=== PATIENT | male | born 1945 | race African-American/Black ===

== ENCOUNTER 2019-07-24 01:05 | Emergency (ER) | payer MEDICARE ==
[2019-07-24] MEDS ORDERED: FAMOTIDINE 20 MG TABLET PO ONE (01:36)
[2019-07-24] MEDS ORDERED: ASPIRIN 81 MG TABLET, CHEWABLE PO ONE (01:36)
--- NOTE | 2019-07-24 01:39 | ER Document Report ---
ED General - General Chief Complaint: Chest Pain Stated Complaint: CHEST PAIN Time Seen by Provider: 07/24/19 01:30 Primary Care Provider: JAMES OAKES MD [ACTIVE STAFF] - Follow up in 3-5 days ASHLEY YEE MD [ACTIVE STAFF] - Follow up in 3-5 days Notes: Patient is a 74-year-old male that comes emergency department for chief complaint of pain throughout the middle of his chest and abdomen all the way down to his lower abdomen that started about 12:30 AM tonight just prior to arrival. He denies nausea or vomiting, fever chills, cough, back pain. He denies injury. He states he has been drinking alcohol but states he only drank 1 beer this afternoon. He smokes, he denies any daily medications, he states his only medical history is he had cervical surgery at one time and he also used to be on Coumadin for a blood clot in his legs a long time ago. He lives at home with his niece who is at bedside. She is unaware of any other medical history as well. - Related Data Allergies/Adverse Reactions: No Known Allergies Allergy (Unverified 07/24/19 01:38) Past Medical History - General Information source: Patient - Social History Smoking Status: Current Every Day Smoker Smoking Education Provided: Yes - <3 min Frequency of alcohol use: Heavy Drug Abuse: None Lives with: Family Family History: Reviewed & Not Pertinent - Past Medical History Cardiac Medical History: Reports: Hx DVT Past Surgical History: Reports: Hx Orthopedic Surgery - Cervical spine Review of Systems - Review of Systems Constitutional: No symptoms reported EENT: No symptoms reported Cardiovascular: See HPI Respiratory: See HPI Gastrointestinal: See HPI Genitourinary: No symptoms reported Male Genitourinary: No symptoms reported Musculoskeletal: No symptoms reported Skin: No symptoms reported Hematologic/Lymphatic: No symptoms reported Neurological/Psychological: No symptoms reported Physical Exam - Vital signs Vitals: Temp Pulse Resp BP Pulse Ox 97.7 F 70 20 112/74 94 07/24/19 01:22 07/24/19 01:22 07/24/19 01:22 07/24/19 01:22 07/24/19 01:22 - Notes Notes: GENERAL: Alert, interacts well. No acute distress. HEAD: Normocephalic, atraumatic. EYES: Pupils equal, round, and reactive to light. Extraocular movements intact. ENT: Oral mucosa moist, tongue midline. Oropharynx unremarkable. Airway patent. NECK: Full range of motion. Supple. Trachea midline. LUNGS: Clear to auscultation bilaterally, no wheezes, rales, or rhonchi. No respiratory distress. HEART: Regular rate and rhythm. No murmur ABDOMEN: Tenderness in the left upper quadrant and epigastric area, remaining abdomen is soft and benign. GENITOURINARY: Deferred EXTREMITIES: Moves all 4 extremities spontaneously. No edema, normal radial and dorsalis pedis pulses bilaterally. No cyanosis. BACK: No CVA tenderness. No cervical, thoracic, lumbar midline tenderness. No saddle anesthesia, normal distal neurovascular exam. Moves all extremities in full range of motion. NEUROLOGICAL: Alert and oriented x3. Normal speech. Cranial nerves II through XII grossly intact. PSYCH: Normal affect, normal mood. SKIN: Warm, dry, normal turgor. No rashes or lesions noted. Course - Re-evaluation Re-evalutation: On my exam patient has some epigastric tenderness mainly in the epigastric area and left upper quadrant, he is also belching frequently. Pain does radiate from the abdomen up into the chest. Shows leukopenia, nonspecific, chemistry shows creatinine of 1.3 but is otherwise unremarkable, lipase is negative. Troponin is negative. Urine is actually positive with positive nitrites and white blood cells. Patient has no CVA tenderness, lower abdominal pain, dysuria. I did discuss this with patient however and he was given Rocephin and culture was placed. EKG nonspecific. Chest x-ray unremarkable. Discussed with patient at length. He is not tachycardic, he is not hypoxic, however he states when the pain is present he does feel somewhat short of breath. He does smoke. He does have a history of DVT and he is not on blood thinners. Decision was made after discussion to perform d-dimer and if this is positive to perform CTA to rule out clot or any other concerning intrathoracic etiology. D-dimer slightly elevated, CTA was performed, shows no clot or concerning acute findings, because shows renal cyst which I discussed with patient and family. Second troponin negative. Based on his clinical picture I have a very low suspicion of acute intrathoracic etiology. Patient had also been given a GI cocktail, after this his symptoms did resolve. I discussed options with patient and family including discharge versus admission. After discussion decision was made to treat him for suspected upper gastrointestinal inflammation, treat for the UTI, and have him follow close with primary care. I discussed the causes of gastritis. Patient states that he drinks alcohol frequently but he does not have withdrawal. He states understanding that this is a cause and he states he will cut back. He lives with his family and he is going home with him, he states he will follow-up with primary care and he will come back if he worsens in any way. Patient stable at time of discharge. - Vital Signs Vital signs: Temp Pulse Resp BP Pulse Ox 98.3 F 63 16 153/86 H 98 07/24/19 06:30 07/24/19 06:30 07/24/19 06:30 07/24/19 06:30 07/24/19 06:30 - Laboratory Result Diagrams: 07/24/19 01:35 07/24/19 01:35 Laboratory results interpreted by me: 07/24/19 07/24/19 07/24/19 01:35 01:35 01:35 WBC 2.7 L RBC 3.60 L Hgb 11.1 L Hct 33.1 L Absolute Neuts (auto) 1.3 L D-Dimer 0.61 H Creatinine 1.30 H Est GFR (MDRD) Non-Af 54 L Urine Blood Urine Nitrite Ur Leukocyte Esterase 07/24/19 02:04 WBC RBC Hgb Hct Absolute Neuts (auto) D-Dimer Creatinine Est GFR (MDRD) Non-Af Urine Blood SMALL H Urine Nitrite POSITIVE H Ur Leukocyte Esterase LARGE H - Diagnostic Test Radiology results interpreted by me: EKG shows sinus rhythm at a rate of 69, QTC of 429, normal axis. Anterior leads with what appears to be mild J-point elevation, no comparison. No T wave inversions or overt ST segment changes in consecutive leads. Discharge - Discharge Clinical Impression: Upper abdominal pain, Belching Chest pain Qualifiers: Chest pain type: unspecified Qualified Code(s): R07.9 - Chest pain, unspecified Urinary tract infection Qualifiers: Urinary tract infection type: site unspecified Hematuria presence: without hematuria Qualified Code(s): N39.0 - Urinary tract infection, site not specified Condition: Stable Disposition: HOME, SELF-CARE Additional Instructions: Your scan is reassuring, your tests are reassuring except for urinary tract infection. Based on your symptoms and evaluation I suspect that you have inflammation of your upper gastrointestinal tract. Take the medications as prescribed including the antibiotics. Follow-up closely with the primary care referral for additional testing and management. Avoid alcohol, NSAIDs, caffeine, spicy food as you are recovering. Start with bland diet and progress. Come back if you are worse including severe pain, vomiting, vomiting blood, black stools, fever, or any other concerning or worsening symptoms. Prescriptions: Sucralfate [Carafate 1 gm Tablet] 1 gm PO QID #20 tablet Cephalexin Monohydrate [Keflex 500 mg Capsule] 500 mg PO BID 7 Days #14 capsule Famotidine [Pepcid 20 mg Tablet] 20 mg PO BID #20 tablet Referrals: JAMES OAKES MD [ACTIVE STAFF] - Follow up in 3-5 days ASHLEY YEE MD [ACTIVE STAFF] - Follow up in 3-5 days
[2019-07-24 01:56] LABS: ABSOLUTE LYMPHOCYTES (AUTO) 1.1 10^3/uL (0.5-4.7); ABSOLUTE MONOCYTES (AUTO) 0.3 10^3/uL (0.1-1.4); ABSOLUTE NEUT (AUTO) 1.3 10^3/uL (1.7-8.2); BASOPHILS % (AUTO) 0.8 % (0-2); EOSINOPHILS % (AUTO) 1.5 % (0-6); HEMATOCRIT 33.1 % (37.9-51.0); HEMOGLOBIN 11.1 g/dL (13.5-17.0); LYMPHOCYTES % (AUTO) 40.9 % (13-45); MEAN CORPUSCULAR HEMOGLOBIN 30.8 pg (27.0-33.4); MEAN CORPUSCULAR HGB CONC 33.5 g/dL (32.0-36.0); MEAN CORPUSCULAR VOLUME 92 fl (80-97); MONOCYTES % (AUTO) 9.9 % (3-13); PLATELET COUNT 262 10^3/uL (150-450); SEGMENTED NEUTROPHILS % (AUTO) 46.9 % (42-78); TOTAL CELLS COUNTED % (AUTO) 100 %; WHITE BLOOD COUNT 2.7 10^3/uL (4.0-10.5)
[2019-07-24 02:20] LABS: APPEARANCE,URINE CLEAR; BILIRUBIN,URINE NEGATIVE (NEGATIVE); COLOR,URINE YELLOW; GLUCOSE, URINE NEGATIVE (NEGATIVE); KETONES,URINE NEGATIVE (NEGATIVE); LEUKOCYTE ESTERASE,URINE LARGE (NEGATIVE); NITRITE,URINE POSITIVE (NEGATIVE); PROTEIN,URINE NEGATIVE (NEGATIVE); URINE SPECIFIC GRAVITY 1.009; UROBILINOGEN,URINE NEGATIVE mg/dL (<2.0)
[2019-07-24 02:22] LABS: ALBUMIN 3.9 g/dL (3.5-5.0); ALCOHOL 93 mg/dL (NONE DETECTED); ALKALINE PHOSPHATASE 97 U/L (38-126); ANION GAP 11 (5-19); ASPARTATE AMINO TRANSFERASE 27 U/L (17-59); BILIRUBIN,DIRECT 0.2 mg/dL (0.0-0.4); BILIRUBIN,TOTAL 0.3 mg/dL (0.2-1.3); BLOOD UREA NITROGEN 13 mg/dL (7-20); CALCIUM 9.3 mg/dL (8.4-10.2); CARBON DIOXIDE 25 mmol/L (22-30); CHLORIDE 102 mmol/L (98-107); GLUCOSE 102 mg/dL (75-110); POTASSIUM 4.1 mmol/L (3.6-5.0); TOTAL PROTEIN 7.6 g/dL (6.3-8.2)
--- NOTE | 2019-07-24 02:29 | RADIOLOGY REPORT (SQ) ---
XR CHEST 1 VIEW EXAM DATE: 07/24/2019 1:36 AM TIME PIECE REPAIRER HISTORY: Chest pain. COMPARISON: None. FINDINGS: The cardiomediastinal silhouette is within normal limits. No focal consolidation, pleural effusion, or pneumothorax. No acute bony findings are seen. IMPRESSION: No evidence of acute cardiopulmonary disease.
[2019-07-24] MEDS ORDERED: ONDANSETRON HCL INJ/PF 4 MG/2 ML SDV IV ONE (02:31)
[2019-07-24] MEDS ORDERED: MORPHINE SULFATE 10 MG/ML INJ IV ONE (02:31)
[2019-07-24] MEDS ORDERED: CEFTRIAXONE 1 GM/D5W RTU 1 GM/50 ML RTUPB IV ONE (03:16)
[2019-07-24] MEDS ORDERED: MAG HYDROX/AL HYDROX/SIMETH SUSP 30 ML UDCUP PO ONE (03:16)
[2019-07-24] MEDS ORDERED: METOCLOPRAMIDE HCL ORAL SOLN 10 MG/10 ML UDCUP PO ONE (03:16)
[2019-07-24] MEDS ORDERED: LIDOCAINE 2% VISCOUS SOLN 20 ML UDCUP PO ONE (03:16)
--- NOTE | 2019-07-24 05:00 | RADIOLOGY REPORT (SQ) ---
EXAM DESCRIPTION: CT CHEST ANGIOGRAPHY WITHOUT THEN WITH IV CONTRAST COMPLETED DATE/TME: 07/24/2019 03:45 CLINICAL HISTORY: 74 years, Male, chest pain, hx PE/DVT COMPARISON: None TECHNIQUE: Axial CT images of the chest were obtained after the administration of IV contrast. MPR and MIP reconstructions were performed. DLP 450 Images stored on PACS. All CT scanners at this facility use dose modulation, iterative reconstruction, and/or weight based dosing when appropriate to reduce radiation dose to as low as reasonably achievable (ALARA). [facility]: Dose Right [facility]: CareDose [facility]: Dose Right [facility]: Teradose 4D [facility]: Smart Tales2Go LIMITATIONS: None. FINDINGS: No acute pulmonary embolism is detected to the segmental branches. Visualized portions of the thyroid gland are normal. The central airways are patent. The heart is normal in size. There is no pericardial effusion. There are mild atherosclerotic calcifications of the thoracic aorta. No evidence of aneurysm or dissection. There is no mediastinal or hilar lymphadenopathy. There is no pericardial effusion. There is a 1.6 cm rounded opacity along the left lower lobe adjacent to pleural calcification, likely representing rounded atelectasis. The lungs are otherwise clear. There is no pneumothorax or pleural effusion. There are no lytic or blastic bone lesions. There is a 1.3 cm right renal cyst. IMPRESSION: No CT evidence of acute pulmonary embolism. TECHNICAL DOCUMENTATION: Quality ID # [id number]: Final reports with documentation of one or more dose reduction techniques (e.g., Automated exposure control, adjustment of the mA and/or kV according to patient size, use of iterative reconstruction technique) copyright 2011 [employer]- All Rights Reserved
[2019-07-24 06:30] VITALS: BP 153/86
--- NOTE | 2019-07-24 08:02 | EKG REPORT ---
SEVERITY:- ABNORMAL ECG - SINUS RHYTHM MULTIPLE ATRIAL PREMATURE COMPLEXES BORDERLINE ST ELEVATION, ANTERIOR LEADS EARLY PRECORDIAL TRNASITION, CONSIDER OLD TRUE POST MT. : Confirmed by: Shiva Mendoza MD 24-Jul-2019 08:01:53
== END 2019-07-24 07:55 | disposition home or self-care (01) ==
LOC: ER 01:05
DX: R07.9 Chest pain, unspecified (principal); N39.0 Urinary tract infection, site not specified; R10.816 Epigastric abdominal tenderness; R10.812 Left upper quadrant abdominal tenderness; R14.2 Eructation; R10.10 Upper abdominal pain, unspecified; Q61.01 Congenital single renal cyst; D72.819 Decreased white blood cell count, unspecified; R06.02 Shortness of breath; F17.200 Nicotine dependence, unspecified, uncomplicated; Z86.718 Personal history of other venous thrombosis and embolism; R79.89 Other specified abnormal findings of blood chemistry
CPT/HCPCS: 93005; 99406; 99285; 96374; 96375; 36415; 87086; 80307; 83690; 85025; 87088; 80053; 81001; 84484; 85379; 71045; 71275; 93010; A9270 ×4; J3490; J2270; J2405; J0696; 87186

== ENCOUNTER 2019-07-28 04:14 | Emergency (ER) | payer MEDICARE ==
[2019-07-28 04:29] VITALS: BP 137/72
[2019-07-28 06:45] LABS: APPEARANCE,URINE CLEAR; BILIRUBIN,URINE NEGATIVE (NEGATIVE); COLOR,URINE YELLOW; GLUCOSE, URINE NEGATIVE (NEGATIVE); KETONES,URINE NEGATIVE (NEGATIVE); PROTEIN,URINE NEGATIVE (NEGATIVE); URINE SPECIFIC GRAVITY 1.011; UROBILINOGEN,URINE NEGATIVE mg/dL (<2.0)
[2019-07-28 06:57] LABS: ALBUMIN 3.9 g/dL (3.5-5.0); ALKALINE PHOSPHATASE 84 U/L (38-126); ANION GAP 9 (5-19); ASPARTATE AMINO TRANSFERASE 26 U/L (17-59); BILIRUBIN,DIRECT 0.2 mg/dL (0.0-0.4); BILIRUBIN,TOTAL 0.3 mg/dL (0.2-1.3); BLOOD UREA NITROGEN 13 mg/dL (7-20); CALCIUM 9.2 mg/dL (8.4-10.2); CARBON DIOXIDE 30 mmol/L (22-30); CHLORIDE 100 mmol/L (98-107); GLUCOSE 88 mg/dL (75-110); POTASSIUM 4.5 mmol/L (3.6-5.0); TOTAL PROTEIN 7.4 g/dL (6.3-8.2)
[2019-07-28 07:40] LABS: ABSOLUTE LYMPHOCYTES (AUTO) 1.4 10^3/uL (0.5-4.7); ABSOLUTE MONOCYTES (AUTO) 0.3 10^3/uL (0.1-1.4); ABSOLUTE NEUT (AUTO) 1.3 10^3/uL (1.7-8.2); BASOPHILS % (AUTO) 0.9 % (0-2); EOSINOPHILS % (AUTO) 1.2 % (0-6); HEMOGLOBIN 12.6 g/dL (13.5-17.0); LYMPHOCYTES % (AUTO) 44.4 % (13-45); MEAN CORPUSCULAR HEMOGLOBIN 30.7 pg (27.0-33.4); MEAN CORPUSCULAR HGB CONC 33.3 g/dL (32.0-36.0); MEAN CORPUSCULAR VOLUME 92 fl (80-97); MONOCYTES % (AUTO) 9.6 % (3-13); PLATELET COUNT 251 10^3/uL (150-450); RED BLOOD COUNT 4.11 10^6/uL (4.35-5.55); RED CELL DISTRIBUTION WIDTH 13.1 % (11.5-14.0); SEGMENTED NEUTROPHILS % (AUTO) 43.9 % (42-78); TOTAL CELLS COUNTED % (AUTO) 100 %; WHITE BLOOD COUNT 3.1 10^3/uL (4.0-10.5)
--- NOTE | 2019-07-28 07:55 | RADIOLOGY REPORT (SQ) ---
EXAM DESCRIPTION: X-ray abdomen two views CLINICAL DATA: 74-year-old male with abdominal pain and possible constipation. TECHNICAL DATA: Two x-ray views of the abdomen were performed on 07/28/2019 at 7:27 AM. Comparison: None. FINDINGS: The bowel gas pattern is nonspecific and nonobstructive. No significant stool burden is identified. There is very mild fecal residue scattered throughout the colon. No pathologic abdominal or pelvic calcifications are identified. No abnormal air collections are identified. No focal soft tissue abnormalities are seen. No acute osseous abnormalities are identified. IMPRESSION: Nonspecific nonobstructive bowel gas pattern. There is very mild fecal residue scattered throughout the colon.
--- NOTE | 2019-07-28 07:57 | ER Document Report ---
ED General - General TRAVEL OUTSIDE OF THE [place] IN LAST 30 DAYS: No - Related Data Home Medications: pepcid 20 mg qday, carafate 1 gm qid. keflex 500 mg bid. oxybutynn 5 mg qday <to start later today> <TRICE YEE - Last Filed: 07/28/19 07:58> <SHEILA TIJERINA M - Last Filed: 07/28/19 10:44> - General Chief Complaint: Urinary Problem Stated Complaint: STOMACH PAIN/BLACK URINE Time Seen by Provider: 07/28/19 05:10 Primary Care Provider: MELANIE HONG MD [Primary Care Provider] - Follow up as needed Notes: 74-year-old male presents to ER today with "black urine." Patient was seen in ER on 07/24 and was diagnosed with UTI. Patient states he is currently taking Keflex as prescribed. Patient was also diagnosed with gastritis and was given some medications for that as well. Patient states he continues to have abdominal pain for 6 days. Patient states he urinated at 3 this morning and has been unable to since. Patient is also stating that he is having constipation and states last bowel movement was yesterday. Patient states he usually goes daily. (TRICE YEE) - Related Data Allergies/Adverse Reactions: No Known Allergies Allergy (Unverified 07/24/19 01:38) Past Medical History - Social History Smoking Status: Current Every Day Smoker Frequency of alcohol use: beer Family History: Reviewed & Not Pertinent Patient has suicidal ideation: No Patient has homicidal ideation: No - Past Medical History Cardiac Medical History: Reports: Hx DVT Past Surgical History: Reports: Hx Orthopedic Surgery - Cervical spine <TRICE YEE - Last Filed: 07/28/19 07:58> Review of Systems <TRICE YEE - Last Filed: 07/28/19 07:58> - Review of Systems Notes: Constitutional: Negative for fever. HENT: Negative for sore throat. Eyes: Negative for visual changes. Cardiovascular: Negative for chest pain. Respiratory: Negative for shortness of breath. Gastrointestinal: Positive for for abdominal pain and constipation.. Negative for vomiting or diarrhea. Genitourinary: Positive for black urine. Negative for dysuria. Musculoskeletal: Negative for back pain. Skin: Negative for rash. Neurological: Negative for headaches, weakness or numbness. 10 point ROS negative except as marked above and in HPI. (TRICE YEE) Physical Exam <TRICE YEE - Last Filed: 07/28/19 07:58> - Vital signs Vitals: Temp Pulse Resp BP Pulse Ox 97.8 F 55 L 18 137/72 H 99 07/28/19 04:20 07/28/19 04:20 07/28/19 04:20 07/28/19 04:20 07/28/19 04:20 - Notes Notes: GENERAL: Well-appearing, well-nourished and in no acute distress. HEAD: Atraumatic, normocephalic. EYES: Extraocular movements intact, sclera anicteric, conjunctiva are normal. NECK: Normal range of motion, supple without lymphadenopathy or JVD. LUNGS: Breath sounds clear to auscultation bilaterally and equal. No wheezes rales or rhonchi. HEART: Regular rate and rhythm without murmurs, rubs or gallops. ABDOMEN: Soft, nontender. No guarding, no rebound. No masses appreciated. EXTREMITIES: Normal range of motion, no pitting or edema. No clubbing or cyanosis. NEUROLOGICAL: Cranial nerves II through XII grossly intact. Normal speech, normal gait. PSYCH: Normal mood, normal affect. SKIN: Warm, Dry, normal turgor, no rashes or lesions noted. (TRICE YEE) Course - Laboratory Result Diagrams: 07/28/19 07:19 07/28/19 06:15 <TRICE YEE - Last Filed: 07/28/19 07:58> - Laboratory Result Diagrams: 07/28/19 07:19 07/28/19 06:15 <SHEILA TIJERINA - Last Filed: 07/28/19 10:44> - Re-evaluation Re-evalutation: 07/28/19 74-year-old male recently diagnosed with UTI presents for "black urine." Patient also states he is having urinary retention and constipation. However patient was able to provide a urine sample in the ER today. Patient is also stating he has been having abdominal pain for the past 6 days, patient was seen in ER on 07/24 and was diagnosed with gastritis on CTA of the abdomen. UA is improved from his previous. And urine is noted to be clear. Lab work including CBC, CMP, lipase, lactic acid ordered. Abdomen 2 view also ordered. 07/28/19 07:58 patient white count is decreased however it is improved from his previous. CMP is within normal limits. (TRICE YEE) 07/28/19 8:15 am Assumed care of patient from MCKENNA Yee. Went to round on patient and he was in not in the room. Rounded back again on patient and he continues to not be in the room. Patient Eloped from the ER. 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 Did get a call from results nurse, winsome for patient is resistant on culture -- will send Macrobid to pharmacy of choice for patient. Will have RN call and inform patient. (SHEILA TIJERINA) - Vital Signs Vital signs: Temp Pulse Resp BP Pulse Ox 97.8 F 55 L 18 137/72 H 99 07/28/19 04:20 07/28/19 04:20 07/28/19 04:20 07/28/19 04:20 07/28/19 04:20 - Laboratory Laboratory results interpreted by me: 07/28/19 07/28/19 06:15 07:19 WBC 3.1 L RBC 4.11 L Hgb 12.6 L Absolute Neuts (auto) 1.3 L Leukocyte Esterase Rfl TRACE H Discharge <TRICE YEE - Last Filed: 07/28/19 07:58> <SHEILA TIJERINA - Last Filed: 07/28/19 10:44> - Discharge Clinical Impression: Change in bowel movement UTI (urinary tract infection) Qualifiers: Urinary tract infection type: acute cystitis Hematuria presence: without hematuria Qualified Code(s): N30.00 - Acute cystitis without hematuria Condition: Stable Disposition: ELOPED Prescriptions: Nitrofurantoin/Nitrofuran Mac [Macrobid 100 mg Capsule] 1 tab PO BID #14 capsule Referrals: MELANIE HONG MD [Primary Care Provider] - Follow up as needed
[2019-07-28] MEDS ORDERED: MAG HYDROX/AL HYDROX/SIMETH SUSP 30 ML UDCUP PO ONE (07:58)
== END 2019-07-28 10:30 | disposition left against medical advice (07) ==
LOC: ER 04:14
DX: N30.00 Acute cystitis without hematuria (principal); R19.5 Other fecal abnormalities; F17.200 Nicotine dependence, unspecified, uncomplicated; Z86.718 Personal history of other venous thrombosis and embolism
CPT/HCPCS: 99281; 36415; 87086; 83690; 85025; 80053; 81001; 83605; 74019; A9270

== ENCOUNTER 2019-08-28 20:17 | Emergency (ER) | payer MEDICARE ==
[2019-08-28 20:33] VITALS: BP 134/70
--- NOTE | 2019-08-28 22:35 | ER Document Report ---
ED General - General Chief Complaint: Neck Pain >24hrs old Stated Complaint: NECK PAIN Time Seen by Provider: 08/28/19 22:31 Primary Care Provider: MELANIE HONG MD [Primary Care Provider] - Follow up as needed TRAVEL OUTSIDE OF THE [place] IN LAST 30 DAYS: No - HPI Onset: Other - acutely today but he has had chronic neck pains off and on for many years Onset/Duration: Gradual Severity: Mild Pain Level: 1 Associated symptoms: None Exacerbated by: Movement - of his neck Relieved by: Remaining still Similar symptoms previously: Yes - many times in the past Recently seen / treated by doctor: No Notes: 74 year old male with a history of Chronic Neck Pain (he tells me he has broken his neck and had Cervical Spine Surgery in the past) here for acute on chronic neck pain. The patient says he has been drinking and he had a fall and his neck started to hurt after the fall. The patient denies hitting his head or neck dirctly on the ground and he denies LOC. The patient feels like he just "tweeked" his neck and he does this from time to time and then has pain like he is having now. The patient denies numbness, tingling, weakness. The patient has been drinking alcohol. - Related Data Allergies/Adverse Reactions: No Known Allergies Allergy (Unverified 07/24/19 01:38) Past Medical History - General Information source: Patient - Social History Smoking Status: Current Some Day Smoker Frequency of alcohol use: Heavy Drug Abuse: None Lives with: Alone Family History: Reviewed & Not Pertinent Patient has suicidal ideation: No Patient has homicidal ideation: No - Past Medical History Cardiac Medical History: Reports: Hx DVT Musculoskeletal Medical History: Reports Other - Chronic Neck Pain, Prior Cervical Spine Fracture Past Surgical History: Reports: Hx Orthopedic Surgery - Cervical spine Review of Systems - Review of Systems Constitutional: No symptoms reported EENT: No symptoms reported Cardiovascular: No symptoms reported Respiratory: No symptoms reported Gastrointestinal: No symptoms reported Genitourinary: No symptoms reported Male Genitourinary: No symptoms reported Musculoskeletal: Neck pain Skin: No symptoms reported Hematologic/Lymphatic: No symptoms reported Neurological/Psychological: No symptoms reported Physical Exam - Vital signs Vitals: Temp Pulse Resp BP Pulse Ox 97.2 F 67 14 134/70 H 100 08/28/19 20:32 08/28/19 20:32 08/28/19 20:32 08/28/19 20:32 08/28/19 20:32 - Notes Notes: GENERAL: Well-appearing, well-nourished and in no acute distress, walking around the ER moving his head and neck in no distress HEAD: Atraumatic, normocephalic. EYES: Pupils equal round and reactive to light, extraocular movements intact, sclera anicteric, conjunctiva are normal. ENT: TMs normal, nares patent, oropharynx clear without exudates. Moist mucous membranes. NECK: Normal range of motion, supple without lymphadenopathy or JVD. Prior Neck Surgical Scars on posterior neck. No midline cervical tenderness on exam. LUNGS: Breath sounds clear to auscultation bilaterally and equal. No wheezes rales or rhonchi. HEART: Regular rate and rhythm without murmurs, rubs or gallops. ABDOMEN: Soft, nontender, normoactive bowel sounds. No guarding, no rebound. No masses appreciated. EXTREMITIES: Normal range of motion, no pitting or edema. No clubbing or cyanosis. NEUROLOGICAL: Cranial nerves II through XII grossly intact. Normal speech, normal gait. PSYCH: Normal mood, normal affect. SKIN: Warm, Dry, normal turgor, no rashes or lesions noted. Course - Re-evaluation Re-evalutation: 08/28/19 23:03 The patient fell and now he has some minor neck pain. He denies directly hitting his head or neck during the fall. The patient admits he has been drinking but he is alert and oriented and has capacity to make medical decisions based on my evaluation of him. The patient does not want any lab work or imaging as he says his neck pain feels the same as it always does when he "tweeks" his neck. The patient requested to be discharged without imaging or lab work. A Family Member came to get the patient but he preferred to take a cab home alone. 08/28/19 23:04 - Vital Signs Vital signs: Temp Pulse Resp BP Pulse Ox 97.2 F 67 14 134/70 H 100 08/28/19 20:32 08/28/19 20:32 08/28/19 20:32 08/28/19 20:32 08/28/19 20:32 Discharge - Discharge Clinical Impression: Neck pain Condition: Stable Disposition: HOME, SELF-CARE Instructions: Neck Injury (Cervical Strain) ([facility]) Additional Instructions: Use over the counter Tylenol and Motrin for pain. Also try using the prescribed Lidocaine Patches as needed for your neck pain. Follow up with a primary care doctor or a Spine Surgeon if your neck pains persist. Prescriptions: Lidocaine [Lidocaine Pain Relief] 1 each TP DAILY #1 adh..patch Referrals: MELANIE HONG MD [Primary Care Provider] - Follow up as needed
== END 2019-08-28 22:57 | disposition home or self-care (01) ==
LOC: ER 20:17
DX: M54.2 Cervicalgia (principal); G89.29 Other chronic pain; Z98.890 Other specified postprocedural states; F17.200 Nicotine dependence, unspecified, uncomplicated; Z86.718 Personal history of other venous thrombosis and embolism
CPT/HCPCS: 99283

== ENCOUNTER 2019-08-29 00:21 | Emergency (ER) | payer MEDICARE ==
--- NOTE | 2019-08-29 04:05 | ER Document Report ---
ED Neck/Back Problem - General Chief Complaint: PAIN Stated Complaint: NECK PAIN Time Seen by Provider: 08/29/19 03:29 Primary Care Provider: MELANIE HONG MD [Primary Care Provider] - Follow up as needed Notes: 74-year-old male presented to ED for complaint of neck pain. He states he has a long history of neck pain and had surgery on this neck in the past. He states there is nothing that we can do for his neck except for he would like some Tylenol. He states he had been drinking and he does fall but he did not hit his neck and it is no difference in his pain now than it was before. He denies any loss of consciousness. He denies any loss of control of his arms or legs. He denies any weakness. TRAVEL OUTSIDE OF THE [place] IN LAST 30 DAYS: No - HPI Patient complains to provider of: Pain, Neck Onset: Other - He states is been hurting for years Onset: Chronic Timing: Still present Quality of pain: Achy, Sharp Severity: Moderate Pain Level: 4 Recent injury: No Associated symptoms: denies: Numbness/tingling, Radiation to arm, Radiation to chest, Radiation to leg Exacerbated by: Nothing Relieved by: Nothing Similar symptoms previously: Yes Recently seen / treated by doctor: Yes - Related Data Allergies/Adverse Reactions: No Known Allergies Allergy (Verified 08/29/19 00:40) Past Medical History - General Information source: Patient - Social History Smoking Status: Current Every Day Smoker Frequency of alcohol use: Heavy Drug Abuse: None Family History: Reviewed & Not Pertinent Patient has suicidal ideation: No Patient has homicidal ideation: No - Past Medical History Cardiac Medical History: Reports: Hx DVT Pulmonary Medical History: Reports: None EENT Medical History: Reports: None Neurological Medical History: Reports: None Endocrine Medical History: Reports: None Renal/ Medical History: Reports: None Malignancy Medical History: Reports None GI Medical History: Reports: None Musculoskeletal Medical History: Reports Hx Musculoskeletal Trauma - Chronic neck pain Skin Medical History: Reports None Psychiatric Medical History: Reports: None Traumatic Medical History: Reports: Hx Spine Fracture - Cervical fracture Infectious Medical History: Reports: None Past Surgical History: Reports: Hx Orthopedic Surgery - Cervical spine Review of Systems - Review of Systems Constitutional: No symptoms reported EENT: No symptoms reported Cardiovascular: No symptoms reported Respiratory: No symptoms reported Gastrointestinal: No symptoms reported Genitourinary: No symptoms reported Male Genitourinary: No symptoms reported Musculoskeletal: Neck pain Skin: No symptoms reported Hematologic/Lymphatic: No symptoms reported Neurological/Psychological: No symptoms reported -: Yes All other systems reviewed and negative Physical Exam - Vital signs Vitals: Temp Pulse Resp BP Pulse Ox 97.5 F 59 L 16 122/74 100 08/29/19 00:52 08/29/19 00:52 08/29/19 00:52 08/29/19 00:52 08/29/19 00:52 Interpretation: Normal - General General appearance: Appears well, Alert - HEENT Head: Normocephalic, Atraumatic Eyes: Normal Pupils: PERRL - Respiratory Respiratory status: No respiratory distress Chest status: Nontender Breath sounds: Normal Chest palpation: Normal - Cardiovascular Rhythm: Regular Heart sounds: Normal auscultation Murmur: No - Abdominal Inspection: Normal Distension: No distension Bowel sounds: Normal Tenderness: Nontender Organomegaly: No organomegaly - Back Back: Normal, Nontender, Tender - Cervical, Scars - Extremities General upper extremity: Normal inspection, Nontender, Normal color, Normal ROM, Normal temperature General lower extremity: Normal inspection, Nontender, Normal color, Normal ROM, Normal temperature, Normal weight bearing. No: Neymar's sign - Neurological Neuro grossly intact: Yes Cognition: Normal Orientation: AAOx4 [place] Coma Scale Eye Opening: Spontaneous [place] Coma Scale Verbal: Oriented [place] Coma Scale Motor: Obeys Commands [place] Coma Scale Total: 15 Speech: Normal Motor strength normal: LUE, RUE, LLE, RLE Sensory: Normal - Psychological Associated symptoms: Normal affect, Normal mood - Skin Skin Temperature: Warm Skin Moisture: Dry Skin Color: Normal Course - Re-evaluation Re-evalutation: 08/29/19 04:14 Patient agreed to take Tylenol and Lidoderm patch. He states his nurses to doing x-rays because there is nothing to do for his neck this is a chronic problem from a fall many years ago when he had a spinal fracture and surgery. He was seen earlier this evening for the same complaint and left before any treatment was done. He states this time he will take some Tylenol. His sister was called per his request to come and give him a ride home. - Vital Signs Vital signs: Temp Pulse Resp BP Pulse Ox 97.3 F 60 20 162/79 H 98 08/29/19 04:06 08/29/19 04:06 08/29/19 04:06 08/29/19 04:06 08/29/19 04:06 Discharge - Discharge Clinical Impression: Neck pain Condition: Stable Disposition: HOME, SELF-CARE Additional Instructions: You were seen today for neck pain. You state this pain is been there for years. You state you fell and had surgery on your neck years ago. You were discharged earlier for the same pain after you stated you did not want any x-rays and you again do not want any x-rays because you stated we will do need you know good. You have been treated with some Tylenol and a Lidoderm patch. You have a pr escription for the Lidoderm patches from your previous visit. Acetaminophen Acetaminophen may be taken for pain relief or fever control. It's much safer than aspirin, offering a wider range of "safe" dosages. It is safe during . Some brand names are Tylenol, Panadol, Datril, Anacin 3, Tempra, and Liquiprin. Acetaminophen can be repeated every four hours. The following are maximum recommended dosages: WEIGHT Dose Drops Elixir Chewable(80mg) (LBS.) drprs=droppers tsp=teaspoon 6 40 mg .4 ml (1/2) 6-11 80 mg .8 ml (full) 1/2 tsp 1 tab 12-16 120 mg 1 1/2 drprs 3/4 tsp 1 1/2 tabs 17-23 160 mg 2 drprs 1 tsp 2 tabs 24-30 240 mg 3 drprs 1 1/2 tsp 3 tabs 30-35 320 mg 2 tsp 4 tabs 36-41 360 mg 2 1/4 tsp 4 1/2 tabs 42-47 400 mg 2 1/2 tsp 5 tabs 48-53 480 mg 3 tsp 6 tabs 54-59 520 mg 3 1/4 tsp 6 1/2 tabs 60-64 560 mg 3 1/2 tsp 7 tabs 65-70 600 mg 3 3/4 tsp 7 1/2 tabs 71-76 640 mg 4 tsp 8 tabs 77-82 720 mg 4 1/2 tsp 9 tabs 83-88 800 mg 5 tsp 10 tabs >89 pounds or adults 650 mg to 900 mg Acetaminophen can be repeated every four hours. Maximum daily dose not to exceed 4000 mg. These maximum recommended dosages are slightly higher than the dosages written on the product container, but these dosages are very safe and well below the toxic dosage for acetaminophen. Ice Packs Apply ice packs frequently against the painful area. Many different schedules are recommended, such as "20 minutes on, 20 minutes off" or "one hour ice, two hours rest." If you need to work, you may need to go longer between ice treatments. You should plan to have the area ice packed AT LEAST one fourth of the time. The ice should be applied over the wrap, tape, or splint, or over a layer of cloth -- not directly against the skin. Some ice bags have a built-in cloth and can be put directly on the skin. FOLLOW-UP CARE: If you have been referred to a physician for follow-up care, call the physicians office for an appointment as you were instructed or within the next two days. If you experience worsening or a significant change in your symptoms, notify the physician immediately or return to the Emergency Department at any time for re-evaluation. Forms: Elevated Blood Pressure, Smoking Cessation Education Referrals: MELANIE HONG MD [Primary Care Provider] - Follow up as needed
[2019-08-29 04:07] VITALS: BP 162/79
[2019-08-29] MEDS ORDERED: ACETAMINOPHEN 325 MG TABLET PO ONE (04:08)
[2019-08-29] MEDS: LIDOCAINE 5% (700 MG) TRANSDERMAL ADH..PATCH TP ONE ×2 (04:12→04:18)
== END 2019-08-29 04:19 | disposition home or self-care (01) ==
LOC: ER 00:21
DX: G89.29 Other chronic pain (principal); M54.2 Cervicalgia; S12.9XXS Fracture of neck, unspecified, sequela; X58.XXXS Exposure to other specified factors, sequela; Z98.890 Other specified postprocedural states; F17.200 Nicotine dependence, unspecified, uncomplicated
CPT/HCPCS: 99283; A9270 ×2

== ENCOUNTER 2019-08-29 11:50 | Emergency (ER) | payer MEDICARE ==
--- NOTE | 2019-08-29 12:20 | ER Document Report ---
ED Medical Screen (RME) - General Chief Complaint: Altered Mental Status Stated Complaint: CHEST PAIN Time Seen by Provider: 08/29/19 12:12 Primary Care Provider: MELANIE HONG MD [Primary Care Provider] - Follow up as needed Mode of Arrival: Ambulatory Information source: Patient, Relative - Nephew Notes: 74-year-old male patient presenting to the emergency department chest pain shortness of breath. Patient's nephew has accompanied him here today and states that he has been having a lot of memory issues and yesterday he was walking out into traffic on a relatively busy road. Patient has no recollection of this. Patient's nephew further tells me that he took him to his primary care provider yesterday where patient refused to see the provider, refused to get out of the car and subsequently came to the ER. They have been having a lot of behavioral issues lately. Patient does drink alcohol but apparently only drinks 1-2 beers per day. Patient is endorsing chest pain or shortness of breath today. Lung sounds clear and equal bilaterally. Patient speaking in full complete sentences. I have greeted and performed a rapid initial assessment of this patient. A comprehensive ED assessment and evaluation of the patient, analysis of test results and completion of the medical decision making process will be conducted by additional ED providers. I have specifically instructed the patient or family members with the patient to immediately return to any nursing staff should anything change in the patient's condition or with their chief complaint. TRAVEL OUTSIDE OF THE [place] IN LAST 30 DAYS: No - Related Data Allergies/Adverse Reactions: No Known Allergies Allergy (Verified 08/29/19 12:03) Home Medications: pt unsure of medications Past Medical History - Social History Chew tobacco use (# tins/day): No Frequency of alcohol use: None - Past Medical History Cardiac Medical History: Reports: Hx DVT Musculoskeltal Medical History: Reports Hx Musculoskeletal Trauma - Chronic neck pain Traumatic Medical History: Reports: Hx Spine Fracture - Cervical fracture Past Surgical History: Reports: Hx Orthopedic Surgery - Cervical spine Physical Exam - Vital signs Vitals: Temp Pulse Resp BP Pulse Ox 97.9 F 67 14 128/65 H 98 08/29/19 12:15 08/29/19 12:15 08/29/19 12:15 08/29/19 12:15 08/29/19 12:15 Course - Vital Signs Vital signs: Temp Pulse Resp BP Pulse Ox 97.9 F 67 14 128/65 H 98 08/29/19 12:15 08/29/19 12:15 08/29/19 12:15 08/29/19 12:15 08/29/19 12:15 Doctor's Discharge - Discharge Referrals: MELANIE HONG MD [Primary Care Provider] - Follow up as needed
[2019-08-29 12:58] LABS: ABSOLUTE LYMPHOCYTES (AUTO) 1.2 10^3/uL (0.5-4.7); ABSOLUTE MONOCYTES (AUTO) 0.2 10^3/uL (0.1-1.4); ABSOLUTE NEUT (AUTO) 1.5 10^3/uL (1.7-8.2); BASOPHILS % (AUTO) 1.1 % (0-2); EOSINOPHILS % (AUTO) 0.4 % (0-6); HEMATOCRIT 34.3 % (37.9-51.0); HEMOGLOBIN 11.4 g/dL (13.5-17.0); LYMPHOCYTES % (AUTO) 42.2 % (13-45); MEAN CORPUSCULAR HEMOGLOBIN 30.3 pg (27.0-33.4); MEAN CORPUSCULAR HGB CONC 33.2 g/dL (32.0-36.0); MEAN CORPUSCULAR VOLUME 91 fl (80-97); MONOCYTES % (AUTO) 6.1 % (3-13); PLATELET COUNT 302 10^3/uL (150-450); RED BLOOD COUNT 3.76 10^6/uL (4.35-5.55); RED CELL DISTRIBUTION WIDTH 12.9 % (11.5-14.0); SEGMENTED NEUTROPHILS % (AUTO) 50.2 % (42-78); TOTAL CELLS COUNTED % (AUTO) 100 %
--- NOTE | 2019-08-29 13:04 | RADIOLOGY REPORT (SQ) ---
EXAM DESCRIPTION: CHEST 2 VIEWS COMPLETED DATE/TIME: 08/29/2019 12:48 pm REASON FOR STUDY: chest paimn/shortness of breath COMPARISON: CT chest 07/24/2019 AP chest 07/24/2019 EXAM PARAMETERS: NUMBER OF VIEWS: two views TECHNIQUE: Digital Frontal and Lateral radiographic views of the chest acquired. RADIATION DOSE: NA LIMITATIONS: none FINDINGS: LUNGS AND PLEURA: Bibasilar scarring or atelectasis similar compared to CT chest 07/24/2019 . Remainder of the lungs are free of focal infiltrates. No pleural effusion. No pneumothorax. MEDIASTINUM AND HILAR STRUCTURES: No masses or contour abnormalities. HEART AND VASCULAR STRUCTURES: No cardiomegaly BONES: No acute findings. HARDWARE: None in the chest. OTHER: No other significant finding. IMPRESSION: Bibasilar scarring or atelectasis. No acute findings. TECHNICAL DOCUMENTATION: JOB ID: [id number] [employer]- All Rights Reserved Reading location - IP/workstation name: [email or web address]
[2019-08-29 13:10] LABS: ALBUMIN 4.4 g/dL (3.5-5.0); ALKALINE PHOSPHATASE 102 U/L (38-126); ANION GAP 14 (5-19); ASPARTATE AMINO TRANSFERASE 33 U/L (17-59); BILIRUBIN,DIRECT 0.2 mg/dL (0.0-0.4); BILIRUBIN,TOTAL 0.3 mg/dL (0.2-1.3); BLOOD UREA NITROGEN 8 mg/dL (7-20); CALCIUM 9.6 mg/dL (8.4-10.2); CARBON DIOXIDE 24 mmol/L (22-30); CHLORIDE 99 mmol/L (98-107); GLUCOSE 87 mg/dL (75-110); POTASSIUM 4.3 mmol/L (3.6-5.0); TOTAL PROTEIN 8.2 g/dL (6.3-8.2)
--- NOTE | 2019-08-29 15:27 | ER Document Report ---
Entered by BUD ACEVEDO SCRIBE 08/29/19 1433 Acting as scribe for:KEYLA PIERSON MD ED General - General Chief Complaint: Altered Mental Status Stated Complaint: CHEST PAIN Time Seen by Provider: 08/29/19 12:12 Primary Care Provider: MELANIE HONG MD [ACTIVE STAFF] - Follow up as needed Mode of Arrival: Ambulatory Information source: Patient, Relative Notes: This 74 year old man with dementia presents to the ED today with complaints of chest pain and shortness of breath that began prior to arrival. Nephew states that the patient has been displaying a lot of confusion, memory loss, ETOH abuse, and behavioral issues recently. Nephew states that the patient relocated from [place] a couple months and was homeless and is now living with family. Nephew notes that the patient walked into traffic on a busy road yesterday, but the patient has no recollection of the event. When asked about the the event, patient states that he "was on the side of the road". When asked about his living situation, patient reports that he is "living in a place where he lives in a long-term with x4-5 people" and believes he lives there currently. Nephew reports that the patient had an appointment with Dr. Horne yesterday, but refused evaluation so he was brought here around 10:30 PM for his chronic neck pain where he was prescribed pain medication and then left in a cab, refusing to leave with his family. Patient was then seen here again for neck pain around 3:30 AM this morning with an unremarkable work up. TRAVEL OUTSIDE OF THE [place] IN LAST 30 DAYS: No - Related Data Allergies/Adverse Reactions: No Known Allergies Allergy (Verified 08/29/19 12:03) Home Medications: pt unsure of medications Past Medical History - General Information source: Patient, Relative - Nephew - Social History Smoking Status: Current Every Day Smoker Cigarette use (# per day): Yes Chew tobacco use (# tins/day): No Smoking Education Provided: No Frequency of alcohol use: Heavy Lives with: Family Family History: Reviewed & Not Pertinent Patient has suicidal ideation: No Patient has homicidal ideation: No - Past Medical History Cardiac Medical History: Reports: Hx DVT Musculoskeletal Medical History: Reports Hx Musculoskeletal Trauma - Chronic neck pain Traumatic Medical History: Reports: Hx Spine Fracture - Cervical fracture Past Surgical History: Reports: Hx Orthopedic Surgery - Cervical spine Review of Systems - Review of Systems Constitutional: No symptoms reported EENT: No symptoms reported Cardiovascular: See HPI, Chest pain Respiratory: See HPI, Short of breath Gastrointestinal: No symptoms reported Genitourinary: No symptoms reported Male Genitourinary: No symptoms reported Musculoskeletal: No symptoms reported Skin: No symptoms reported Hematologic/Lymphatic: No symptoms reported Neurological/Psychological: See HPI, Confusion, Dementia -: Yes All other systems reviewed and negative Physical Exam - Vital signs Vitals: Temp Pulse Resp BP Pulse Ox 97.9 F 67 14 128/65 H 98 08/29/19 12:15 08/29/19 12:15 08/29/19 12:15 08/29/19 12:15 08/29/19 12:15 Interpretation: Normal - General General appearance: Alert, Other - Confused - HEENT Head: Normocephalic, Atraumatic Eyes: Normal Pupils: PERRL Neck: Other - Back of neck is tender with palpation - Respiratory Respiratory status: No respiratory distress Chest status: Nontender Breath sounds: Normal Chest palpation: Normal - Cardiovascular Rhythm: Regular Heart sounds: Normal auscultation Murmur: No - Abdominal Inspection: Normal Distension: No distension Bowel sounds: Normal Tenderness: Nontender Organomegaly: No organomegaly - Back Back: Normal, Nontender - Extremities General upper extremity: Normal inspection General lower extremity: Normal inspection - Neurological Neuro grossly intact: Yes Cognition: Confused, Short term memory loss Orientation: Disoriented to place, Disoriented to time, Disoriented to events - Oriented to person Speech: Other - Confabulates when asked questions about his living situation - Psychological Associated symptoms: Confused - Skin Skin Temperature: Warm Skin Moisture: Dry Skin Color: Normal Course - Vital Signs Vital signs: Temp Pulse Resp BP Pulse Ox 97.9 F 59 L 24 H 151/84 H 98 08/29/19 12:15 08/29/19 12:16 08/29/19 16:02 08/29/19 16:02 08/29/19 16:02 - Laboratory Result Diagrams: 08/29/19 12:28 08/29/19 12:28 Laboratory results interpreted by me: 08/29/19 12:28 WBC 3.0 L RBC 3.76 L Hgb 11.4 L Hct 34.3 L Absolute Neuts (auto) 1.5 L - Diagnostic Test Radiology reviewed: Image reviewed, Reports reviewed - CT scan of the head shows small vessel white matter disease, no acute changes. Chest x-ray shows bibasilar scarring without acute changes. - EKG Interpretation by Me EKG shows normal: Sinus rhythm, [place], Intervals, QRS Complexes, ST-T Waves Rate: Normal - 68 Rhythm: NSR, APC's When compared to previous EKG there are: No significant change Discharge - Discharge Clinical Impression: Dementia Qualifiers: Dementia type: unspecified type Dementia behavioral disturbance: without behavioral disturbance Qualified Code(s): F03.90 - Unspecified dementia without behavioral disturbance Condition: Stable Disposition: HOME, SELF-CARE Additional Instructions: Dementia: The exam shows a decrease in mental ability called dementia. Signs of dementia include a gradual loss of memory and a decreased ability to reason and solve problems. Personality changes, hostility, lack of self-care, and loss of bladder or bowel control are later signs of dementia. In these later stages, patients may become confused, lost, fearful, or agitated, even in familiar yohan ana. Alzheimer's disease is the most common type of dementia. It has no known cause or specific treatment. Other causes include alcohol and drug abuse, medication effects (especially tranquilizers and sleeping pills), strokes, head injuries, and brain tumors. Sometimes severe depression in an elderly person is mistaken for dementia, and this can be treated if recognized. A complete medical evaluation and ongoing care with a doctor is important. Most people with dementia need help or supervision with daily living. Some may be able to live independently with occasional help; others require foster care or even custodial placement. Alcohol, sedatives, and antihistamines may make the symptoms worse and should be avoided. Alzheimer's disease support groups are available in some communities and can be very valuable to the entire family. Prescription medication can ease the symptoms of Alzheimer's disease in some patients. Please arrange for medical follow-up. Return here if there is a sudden change in mental function, inability to move an arm or leg, inability to speak, fever, or any other significant change. Follow-up with your primary care provider this week for further evaluation and treatment of your dementia. There are medications that will help memory and behavioral problems and dementia. RETURN TO THE EMERGENCY ROOM IF ANY NEW OR WORSENING SYMPTOMS. Referrals: MELANIE HONG MD [ACTIVE STAFF] - Follow up in 3-5 days Scribe Attestation: 08/29/19 15:44 I personally performed the services described in the documentation, reviewed and edited the documentation which was dictated to the scribe in my presence, and it accurately records my words and actions. I personally performed the services described in the documentation, reviewed and edited the documentation which was dictated to the scribe in my presence, and it accurately records my words and actions.
--- NOTE | 2019-08-29 15:28 | RADIOLOGY REPORT (SQ) ---
EXAM DESCRIPTION: CT HEAD WITHOUT COMPLETED DATE/TIME: 08/29/2019 3:13 pm REASON FOR STUDY: Confusion, dementia COMPARISON: None. TECHNIQUE: Axial images acquired through the brain without intravenous contrast. Images reviewed wi th bone, brain and subdural windows. Additional sagittal and coronal reconstructions were generated. Images stored on PACS. All CT scanners at this facility use dose modulation, iterative reconstruction, and/or weight based d osing when appropriate to reduce radiation dose to as low as reasonably achievable (ALARA). [facility]: Dose Right [facility]: CareDose [facility]: Dose Right [facility]: Teradose 4D [facility]: Smart Executive Caddie RADIATION DOSE: CT Rad equipment meets quality standard of care and radiation dose reduction techniq ues were employed. CTDIvol: 53.2 mGy. DLP: 1044 mGy-cm. mGy. LIMITATIONS: None. FINDINGS: VENTRICLES: Normal size and contour. CEREBRUM: No masses. No hemorrhage. No midline shift. No evidence for acute infarction. Few scatte red areas of low density in the white matter most likely chronic small vessel ischemic changes. CEREBELLUM: No masses. No hemorrhage. No alteration of density. No evidence for acute infarction. EXTRAAXIAL SPACES: No fluid collections. No masses. ORBITS AND GLOBE: No intra- or extraconal masses. Normal contour of globe without masses. CALVARIUM: No fracture. PARANASAL SINUSES: No fluid or mucosal thickening. SOFT TISSUES: No mass or hematoma. OTHER: No other significant finding. IMPRESSION: No acute intracranial pathology. Small vessel white matter disease. EVIDENCE OF ACUTE STROKE: NO. COMMENT: Quality ID # [id number]: Final reports with documentation of one or more dose reduction techniques (e.g., Automated exposure control, adjustment of the mA and/or kV according to patient size, use of iterative reconstruction technique) TECHNICAL DOCUMENTATION: JOB ID: [id number] [employer]- All Rights Reserved Reading location - IP/workstation name: [email or web address]
[2019-08-29 17:16] VITALS: BP 152/69
--- NOTE | 2019-08-29 21:27 | EKG REPORT ---
SEVERITY:- ABNORMAL ECG - SINUS RHYTHM MULTIPLE ATRIAL PREMATURE COMPLEXES : Confirmed by: Gema Vidal MD 29-Aug-2019 21:26:40
== END 2019-08-29 17:21 | disposition home or self-care (01) ==
LOC: ER 11:50
DX: F03.90 Unspecified dementia, unspecified severity, without behavioral disturbance, psychotic disturbance, mood disturbance, and anxiety (principal); R07.9 Chest pain, unspecified; R06.02 Shortness of breath; M54.2 Cervicalgia; G89.29 Other chronic pain; F17.210 Nicotine dependence, cigarettes, uncomplicated
CPT/HCPCS: 36415; 70450; 71046; 80053; 84484; 85025; 93005; 93010; 99285

== ENCOUNTER 2019-09-03 19:53 | Emergency (ER) | payer MEDICARE ==
--- NOTE | 2019-09-03 20:35 | ER Document Report ---
ED General - General Chief Complaint: Chest Pain Stated Complaint: CHEST PAIN Time Seen by Provider: 09/03/19 20:19 Notes: Patient is a 74-year-old male that comes to the emergency department for chief complaint of chest pain. Patient was reportedly at a local grocery store, started complaining of chest pain, on the store then called EMS and patient was brought by EMS. Patient given 324 mg of aspirin and 2 sublingual nitroglycerin. Patient states he feels no different, still feels discomfort in the left lower chest area. He denies vomiting, dizziness, shortness of breath, fever, or any other complaints. Patient states he thinks he fell this morning but he caught himself with his arms and he did not hit his head or his chest. Patient unable to give reliable history, he is unsure of his current location, unsure of the year, unsure of the current president. Patient claims he has no medical history and takes no daily medications. He also states that he lives in [place] and is here because he "gets around a lot". TRAVEL OUTSIDE OF THE U.S. IN LAST 30 DAYS: No - Related Data Allergies/Adverse Reactions: No Known Allergies Allergy (Verified 08/29/19 12:03) Past Medical History - General Information source: Patient - Social History Smoking Status: Current Every Day Smoker Frequency of alcohol use: Occasional Drug Abuse: None Lives with: Family Family History: Reviewed & Not Pertinent Patient has suicidal ideation: No Patient has homicidal ideation: No - Past Medical History Cardiac Medical History: Reports: Hx DVT Musculoskeletal Medical History: Reports Hx Musculoskeletal Trauma - Chronic neck pain Traumatic Medical History: Reports: Hx Spine Fracture - Cervical fracture Past Surgical History: Reports: Hx Orthopedic Surgery - Cervical spine Review of Systems - Review of Systems Constitutional: No symptoms reported EENT: No symptoms reported Cardiovascular: See HPI Respiratory: No symptoms reported Gastrointestinal: See HPI Genitourinary: No symptoms reported Male Genitourinary: No symptoms reported Musculoskeletal: No symptoms reported Skin: No symptoms reported Hematologic/Lymphatic: No symptoms reported Neurological/Psychological: See HPI Physical Exam - Vital signs Vitals: Resp Pulse Ox 23 H 98 09/03/19 20:04 09/03/19 20:04 - Notes Notes: GENERAL: Alert, interacts well. No acute distress. HEAD: Normocephalic, atraumatic. EYES: Pupils equal, round, and reactive to light. Extraocular movements intact. ENT: Oral mucosa moist, tongue midline. Oropharynx unremarkable. Airway patent. LUNGS: Clear to auscultation bilaterally, no wheezes, rales, or rhonchi. No respiratory distress. HEART: Regular rate and rhythm. No murmur ABDOMEN: Soft, non-tender. Non-distended. Bowel sounds present in all 4 quadrants. GENITOURINARY: Deferred EXTREMITIES: Moves all 4 extremities spontaneously. No edema, normal radial and dorsalis pedis pulses bilaterally. No cyanosis. BACK: no cervical, thoracic, lumbar midline tenderness. No saddle anesthesia, normal distal neurovascular exam. Moves all extremities in full range of motion. NEUROLOGICAL: Alert and oriented to person only but not place or events. Normal speech. Cranial nerves II through XII grossly intact. PSYCH: Normal affect, normal mood. SKIN: Warm, dry, normal turgor. No rashes or lesions noted. Course - Re-evaluation Re-evalutation: Patient asking for snack and to watch TV. He is very comfortable in appearance, he is cooperative but confused. Based on previous records patient has a history of dementia, lives with his family, was here several days ago complaining of chest pain as well in addition to generalized complaints of worsening progressive dementia for which she had imaging of the head and generalized work- up. Patient also reported to have a history of alcoholism. His vital signs are normal at this time. Work-up pending. Patient's niece called, inquired about the patient, she states that she is able to be called to picker and sorter load and unload the patient when his work-up is complete. 09/04/19 03:25 Patient has been sleeping, ate crackers, had no additional complaints on reevaluation's. He has 2 negative troponins and unremarkable work-up. He has no chest pain on additional questioning. Patient with history of dementia, confused at baseline and confused here. I discussed how his work-up did not show any concerning findings, discussed how his niece had called and was asking about him. He became apparently very angry, jumped up, started yelling, ripped off his monitoring and stated that "she has no my knees, I do not know her, she is trying to take my money". Patient, for vita his way out of the room past me, ripped out his IV, and ran into the lobby and out of the hospital. Security had been called but patient was very quick and ran off into the darkness before we could apprehend him. [employer] has been called. We did discuss the situation with the niece with plan to find him and bring him back. She states agreement and appreciation. I have discussed the case with Dr. Phipps. - Vital Signs Vital signs: Temp Pulse Resp BP Pulse Ox 97.9 F 23 H 118/67 99 09/03/19 20:19 09/04/19 03:01 09/04/19 00:00 09/04/19 03:01 - Laboratory Result Diagrams: 09/03/19 20:09 09/03/19 22:05 Laboratory results interpreted by me: 09/03/19 09/03/19 20:09 22:05 WBC 3.2 L RBC 3.76 L Hgb 11.6 L Hct 34.6 L Sodium 136.4 L - EKG Interpretation by Me Additional EKG results interpreted by me: EKG shows sinus rhythm at a rate of 72, PACs, QTC of 425. Normal axis. Borderline elevation of the ST segment in the anterior leads versus J-point elevation. No ischemic T waves noted. This does have a similar appearance compared to prior. Discharge - Discharge Clinical Impression: Chest pain Qualifiers: Chest pain type: unspecified Qualified Code(s): R07.9 - Chest pain, unspecified Dementia Qualifiers: Dementia type: unspecified type Dementia behavioral disturbance: with behavio ral disturbance Qualified Code(s): F03.91 - Unspecified dementia with behavioral disturbance Condition: Stable Disposition: ELOPED
[2019-09-03 20:41] LABS: ABSOLUTE LYMPHOCYTES (AUTO) 1.3 10^3/uL (0.5-4.7); ABSOLUTE MONOCYTES (AUTO) 0.2 10^3/uL (0.1-1.4); ABSOLUTE NEUT (AUTO) 1.7 10^3/uL (1.7-8.2); BASOPHILS % (AUTO) 0.6 % (0-2); EOSINOPHILS % (AUTO) 0.9 % (0-6); HEMATOCRIT 34.6 % (37.9-51.0); HEMOGLOBIN 11.6 g/dL (13.5-17.0); LYMPHOCYTES % (AUTO) 39.4 % (13-45); MEAN CORPUSCULAR HEMOGLOBIN 30.9 pg (27.0-33.4); MEAN CORPUSCULAR HGB CONC 33.6 g/dL (32.0-36.0); MEAN CORPUSCULAR VOLUME 92 fl (80-97); MONOCYTES % (AUTO) 6.6 % (3-13); PLATELET COUNT 291 10^3/uL (150-450); RED BLOOD COUNT 3.76 10^6/uL (4.35-5.55); RED CELL DISTRIBUTION WIDTH 13.1 % (11.5-14.0); SEGMENTED NEUTROPHILS % (AUTO) 52.5 % (42-78); TOTAL CELLS COUNTED % (AUTO) 100 %; WHITE BLOOD COUNT 3.2 10^3/uL (4.0-10.5)
--- NOTE | 2019-09-03 21:13 | RADIOLOGY REPORT (SQ) ---
EXAM DESCRIPTION: XR CHEST 1 VIEW COMPLETED DATE/TME: 09/03/2019 20:31 CLINICAL HISTORY: 74 years, Male, chest pain COMPARISON: None. NUMBER OF VIEWS: 2 frontal TECHNIQUE: LIMITATIONS: None. FINDINGS: Cardiomediastinal silhouette is top normal. Lungs grossly clear. Left basilar atelectasis/scar, similar to prior. No effusion. No pneumothorax IMPRESSION: No active disease. No adverse change copyright 2010 [employer]- All Rights Reserved
[2019-09-03 22:39] LABS: ALBUMIN 3.8 g/dL (3.5-5.0); ALKALINE PHOSPHATASE 96 U/L (38-126); ANION GAP 9 (5-19); ASPARTATE AMINO TRANSFERASE 24 U/L (17-59); BILIRUBIN,TOTAL 0.2 mg/dL (0.2-1.3); BLOOD UREA NITROGEN 11 mg/dL (7-20); CALCIUM 9.6 mg/dL (8.4-10.2); CARBON DIOXIDE 28 mmol/L (22-30); CHLORIDE 99 mmol/L (98-107); GLUCOSE 90 mg/dL (75-110); POTASSIUM 4.1 mmol/L (3.6-5.0); TOTAL PROTEIN 7.1 g/dL (6.3-8.2)
[2019-09-04 00:07] VITALS: BP 118/67
--- NOTE | 2019-09-04 00:53 | EKG REPORT ---
SEVERITY:- BORDERLINE ECG - SINUS RHYTHM ATRIAL PREMATURE COMPLEX BORDERLINE ST ELEVATION : Confirmed by: Gema Vidal MD 04-Sep-2019 00:52:49
== END 2019-09-04 03:00 | disposition left against medical advice (07) ==
LOC: ER 19:53
DX: R07.9 Chest pain, unspecified (principal); F03.91 Unspecified dementia, unspecified severity, with behavioral disturbance; I49.1 Atrial premature depolarization; F17.200 Nicotine dependence, unspecified, uncomplicated; Z53.29 Procedure and treatment not carried out because of patient's decision for other reasons
CPT/HCPCS: 36415; 71045; 80053; 83690; 84484; 85025; 93005; 93010; 99281

== ENCOUNTER 2019-09-04 19:19 | Observation (INO) | payer MEDICARE ==
--- NOTE | 2019-09-04 19:51 | ER Document Report ---
ED Medical Screen (RME) - General Chief Complaint: Alcohol Withdrawl Stated Complaint: ETOH Time Seen by Provider: 09/04/19 19:44 TRAVEL OUTSIDE OF THE U.S. IN LAST 30 DAYS: No - HPI Notes: 09/04/19 19:50 Patient is a 74-year-old male with a history of memory issues, alcohol abuse, chronic neck and back pain who presents for evaluation and complaining of continued neck and back pain as well as chest pain. He was seen last night/yesterday and eloped early in the morning. He was confused at baseline at that time as well. No fever. I have treated and performed a rapid initial assessment of this patient. A comprehensive ED assessment and evaluation of the patient, analysis of test results and completion of medical decision making process will be conducted by additional ED providers. PHYSICAL EXAMINATION: GENERAL: Well-appearing, well-nourished and in no acute distress. Currently answers questions appropriately. Heart: RRR Lungs: CTAB - Related Data Allergies/Adverse Reactions: No Known Allergies Allergy (Verified 08/29/19 12:03) Past Medical History - Past Medical History Cardiac Medical History: Reports: Hx DVT Musculoskeltal Medical History: Reports Hx Musculoskeletal Trauma - Chronic neck pain Traumatic Medical History: Reports: Hx Spine Fracture - Cervical fracture Past Surgical History: Reports: Hx Orthopedic Surgery - Cervical spine Physical Exam - Vital signs Vitals: Temp Pulse Resp BP Pulse Ox 98.4 F 83 18 138/74 H 100 09/04/19 19:44 09/04/19 19:44 09/04/19 19:44 09/04/19 19:44 09/04/19 19:44 Course - Vital Signs Vital signs: Temp Pulse Resp BP Pulse Ox 98.4 F 83 18 138/74 H 100 09/04/19 19:44 09/04/19 19:44 09/04/19 19:44 09/04/19 19:44 09/04/19 19:44
[2019-09-04 20:49] LABS: ABSOLUTE LYMPHOCYTES (AUTO) 1.2 10^3/uL (0.5-4.7); ABSOLUTE MONOCYTES (AUTO) 0.4 10^3/uL (0.1-1.4); ABSOLUTE NEUT (AUTO) 5.2 10^3/uL (1.7-8.2); BASOPHILS % (AUTO) 0.3 % (0-2); EOSINOPHILS % (AUTO) 0.3 % (0-6); HEMATOCRIT 37.7 % (37.9-51.0); HEMOGLOBIN 12.7 g/dL (13.5-17.0); LYMPHOCYTES % (AUTO) 17.6 % (13-45); MEAN CORPUSCULAR HEMOGLOBIN 30.7 pg (27.0-33.4); MEAN CORPUSCULAR HGB CONC 33.5 g/dL (32.0-36.0); MEAN CORPUSCULAR VOLUME 92 fl (80-97); MONOCYTES % (AUTO) 5.9 % (3-13); PLATELET COUNT 272 10^3/uL (150-450); RED BLOOD COUNT 4.12 10^6/uL (4.35-5.55); SEGMENTED NEUTROPHILS % (AUTO) 75.9 % (42-78); TOTAL CELLS COUNTED % (AUTO) 100 %
[2019-09-04 20:53] LABS: WHITE BLOOD COUNT 6.9 10^3/uL (4.0-10.5)
[2019-09-04 20:54] LABS: APPEARANCE,URINE CLEAR; BILIRUBIN,URINE NEGATIVE (NEGATIVE); COLOR,URINE STRAW; GLUCOSE, URINE NEGATIVE (NEGATIVE); KETONES,URINE NEGATIVE (NEGATIVE); PROTEIN,URINE NEGATIVE (NEGATIVE); URINE SPECIFIC GRAVITY 1.003; UROBILINOGEN,URINE NEGATIVE mg/dL (<2.0)
[2019-09-04 21:02] LABS: ALBUMIN 4.7 g/dL (3.5-5.0); ALCOHOL 31 mg/dL (NONE DETECTED); ALKALINE PHOSPHATASE 106 U/L (38-126); ANION GAP 13 (5-19); ASPARTATE AMINO TRANSFERASE 41 U/L (17-59); BILIRUBIN,TOTAL 0.3 mg/dL (0.2-1.3); BLOOD UREA NITROGEN 11 mg/dL (7-20); CARBON DIOXIDE 28 mmol/L (22-30); CHLORIDE 96 mmol/L (98-107); GLUCOSE 98 mg/dL (75-110); POTASSIUM 4.3 mmol/L (3.6-5.0); TOTAL PROTEIN 8.3 g/dL (6.3-8.2)
[2019-09-04 21:05] LABS: URINE AMPHETAMINES SCREEN NEGATIVE; URINE BARBITURATES SCREEN NEGATIVE; URINE BENZODIAZEPINES SCREEN NEGATIVE; URINE COCAINE SCREEN NEGATIVE; URINE MARIJUANA (THC) SCREEN NEGATIVE; URINE METHADONE SCREEN NEGATIVE; URINE PHENCYCLIDINE SCREEN NEGATIVE
--- NOTE | 2019-09-04 21:17 | ER Document Report ---
ED General - General Chief Complaint: Chest Pain Stated Complaint: ETOH Time Seen by Provider: 09/04/19 19:44 Mode of Arrival: Ambulatory Information source: Patient, Relative Cannot obtain history due to: Dementia Notes: Patient is a 74-year-old male who lives with his sister since May 2019 here in [place]. Patient had been being home Ayesha up in [place]. His sister took him in in May and got him involved in the community with community programs for the citizens. Sister reports that he is noncompliant with medications. He has been told that he should not drink any alcohol and he continues to do so. He often complains of chest pain because he realizes that allows him to be placed in the hospital. This is the behavior that she told me he had up in [place] where he would always be able to find care home by complaining of chest pain. Patient does smoke tobacco as well and does have alcohol ingestion sporadic. Yesterday patient was seen in the emergency department with a complaint of chest pain and he left AGAINST MEDICAL ADVICE. From that point he was missing and his sister put out an alert to find subject. Patient was found today and was brought into the emergency department for further evaluation. Continues to complain of his neck pain where he has had surgery in the past. Unknown to us as to what neck injury had occurred in the past. Patient reports that his pain shoots all over his body. Including his chest. TRAVEL OUTSIDE OF THE [place] IN LAST 30 DAYS: No - HPI Onset: Other - Chronic pain in neck and chest. Onset/Duration: Constant Quality of pain: Sharp Severity: Moderate Associated symptoms: Other - Chest pain Exacerbated by: Movement Relieved by: Other - No report of anything that works. Patient reports that all the doctors he has had in the past has not found any solution to his pain in his neck Similar symptoms previously: Yes Recently seen / treated by doctor: Yes - Patient does have your primary provider in [place]. Notes: According to sister patient is noncompliant and will not take his medications as instructed. She does her best in getting him his medications by putting it in his coffee. Despite that patient is still noncompliant. Today she mentioned that patient did come home with a bottle of beer in his possession. - Related Data Allergies/Adverse Reactions: No Known Allergies Allergy (Verified 08/29/19 12:03) Past Medical History - General Cannot obtain history due to: Dementia - Social History Smoking Status: Current Every Day Smoker Occupation: Retired Lives with: Family Family History: Reviewed & Not Pertinent Patient has suicidal ideation: No Patient has homicidal ideation: No - Past Medical History Cardiac Medical History: Reports: Hx DVT Pulmonary Medical History: Reports: None EENT Medical History: Reports: None Neurological Medical History: Reports: None Endocrine Medical History: Reports: None Renal/ Medical History: Reports: None Malignancy Medical History: Reports None GI Medical History: Reports: None Musculoskeletal Medical History: Reports Hx Musculoskeletal Trauma - Chronic neck pain Skin Medical History: Reports None Psychiatric Medical History: Reports: Hx Dementia Traumatic Medical History: Reports: Hx Spine Fracture - Cervical fracture Past Surgical History: Reports: Hx Orthopedic Surgery - Cervical spine Review of Systems - Review of Systems Constitutional: No symptoms reported EENT: No symptoms reported Cardiovascular: Chest pain Respiratory: No symptoms reported Gastrointestinal: No symptoms reported Genitourinary: No symptoms reported Male Genitourinary: No symptoms reported Musculoskeletal: No symptoms reported Skin: No symptoms reported Hematologic/Lymphatic: No symptoms reported Neurological/Psychological: Confusion, Dementia Physical Exam - Vital signs Vitals: Temp Pulse Resp BP Pulse Ox 98.4 F 83 18 138/74 H 100 09/04/19 19:44 09/04/19 19:44 09/04/19 19:44 09/04/19 19:44 09/04/19 19:44 Interpretation: Normal - General General appearance: Appears well, Alert - HEENT Head: Normocephalic, Atraumatic Eyes: Normal Pupils: PERRL - Respiratory Respiratory status: No respiratory distress Chest status: Nontender Breath sounds: Normal Chest palpation: Normal - Cardiovascular Rhythm: Regular Heart sounds: Normal auscultation Murmur: No - Abdominal Inspection: Normal Distension: No distension Bowel sounds: Normal Tenderness: Nontender Organomegaly: No organomegaly - Back Back: Normal, Nontender - Extremities General upper extremity: Normal inspection, Nontender, Normal color, Normal ROM, Normal temperature General lower extremity: Normal inspection, Nontender, Normal color, Normal ROM, Normal temperature, Normal weight bearing. No: Neymar's sign - Neurological Neuro grossly intact: Yes Cognition: Normal Orientation: AAOx4, Disoriented to time [place] Coma Scale Eye Opening: Spontaneous [place] Coma Scale Verbal: Oriented [place] Coma Scale Motor: Obeys Commands [place] Coma Scale Total: 15 Speech: Normal Motor strength normal: LUE, RUE, LLE, RLE Sensory: Normal - Psychological Associated symptoms: Normal affect, Normal mood, Agitated, Labile, Psychomotor agitation, Other - Gets agitated at the site of some his family members who are sitting outside his room at this time. - Skin Skin Temperature: Warm Skin Moisture: Dry Skin Color: Normal Course - Re-evaluation Re-evalutation: 09/05/19 06:22 Patient is resting comfortably not showing any signs of distress. Patient's behavior has much improved after IM Geodon was given many hours ago. Patient's course shows that his troponin peaked at 0.024 and is now 0.022. Chest x-ray sh ows mild pulmonary edema with a BNP of 400. Patient did not take his usual medications over the past day. Patient was absent for period of time where his family members did not know where he was once he left the emergency department yesterday. And reportedly patient came when he was found that he came into the house with a bottle of beer. - Vital Signs Vital signs: Temp Pulse Resp BP Pulse Ox 97.6 F 73 16 124/51 L 100 09/04/19 23:41 09/04/19 23:41 09/04/19 23:41 09/04/19 23:41 09/04/19 23:41 - Laboratory Result Diagrams: 09/04/19 20:02 09/04/19 20:02 Laboratory results interpreted by me: 09/04/19 09/04/19 09/04/19 20:02 20:02 20:02 RBC 4.12 L Hgb 12.7 L Hct 37.7 L Sodium 136.7 L Chloride 96 L Total Protein 8.3 H Urine Blood SMALL H Leukocyte Esterase Rfl TRACE H 09/05/19 06:24 Troponin slightly increased but not above acute myocardial infarction status. Most likely small troponin leak due to patient's mild pulmonary edema. - Diagnostic Test Radiology reviewed: Image reviewed, Reports reviewed Radiology results interpreted by me: 09/05/19 00:30 Mild increase in interstitial edema on chest x-ray and a normal-sized heart per radiology report. 09/05/19 06:25 - EKG Interpretation by Me Additional EKG results interpreted by me: 09/05/19 06:31 Twelve-lead EKG done on September 04, 2019 time 2023. EKG shows a normal sinus rhythm rate of [address] elevation. Compared to 1 day ago of September 03, [id number] time patient had a sinus rhythm rate of 72 and occasional PAC and borderline ST elevation present as well no change in EKG in the past 2 days. 09/05/19 06:57 Twelve-lead EKG done on September 05, 2019 at 649 shows a normal sinus rhythm rate of [address] elevation in V2 V3 no acute ST-T wave changes otherwise. Discharge - Discharge Clinical Impression: Dementia Qualifiers: Dementia type: Alzheimer's disease Alzheimer's disease onset: unspecified onset Dementia behavioral disturbance: with behavioral disturbance Qualified Code(s): G30.9 - Alzheimer's disease, unspecified Chest pain Qualifiers: Chest pain type: chest pain due to myocardial ischemia Ischemic chest pain type: stable angina pectoris Qualified Code(s): I20.8 - Other forms of angina pectoris Condition: Fair Disposition: ADMITTED INPATIENT Admitting Provider: Clay (Hospitalist)
--- NOTE | 2019-09-04 21:37 | RADIOLOGY REPORT (SQ) ---
EXAM DESCRIPTION: XR CHEST 2 VIEWS COMPLETED DATE/TME: 09/04/2019 19:48 CLINICAL HISTORY: CP COMPARISON: 09/03/2019 FINDINGS: Two views of the chest are submitted. There is mildly increased pulmonary edema bilaterally. Cardiac silhouette appears normal. No focal parenchymal or pleural disease. There is no significant pulmonary vascular engorgement. IMPRESSION: Mildly increased pulmonary edema.
[2019-09-04] MEDS ORDERED: ZIPRASIDONE MESYLATE INJ/PF 20 MG SDV IM ONE (22:18)
[2019-09-05] MEDS ORDERED: ASPIRIN 81 MG TABLET, CHEWABLE PO ONE (06:55)
--- NOTE | 2019-09-05 07:06 | EKG REPORT ---
SEVERITY:- NORMAL ECG - SINUS RHYTHM : Confirmed by: Shiva Mendoza MD 05-Sep-2019 07:06:16
--- NOTE | 2019-09-05 07:07 | EKG REPORT ---
SEVERITY:- BORDERLINE ECG - SINUS RHYTHM BORDERLINE ST ELEVATION : Confirmed by: Shiva Mendoza MD 05-Sep-2019 07:06:39
[2019-09-05] MEDS: LOSARTAN POTASSIUM 25 MG TABLET PO SCH (09:23)
[2019-09-05] MEDS: THIAMINE HCL 100 MG TABLET PO SCH (09:23)
[2019-09-05] MEDS: OXYBUTYNIN CHLORIDE 5 MG TABLET PO SCH (09:23)
[2019-09-05] MEDS: DONEPEZIL HCL 5 MG TABLET PO SCH (09:24)
[2019-09-05] MEDS: MEMANTINE HCL 10 MG TABLET PO SCH ×2 (09:26→17:47)
[2019-09-05] MEDS ORDERED: ZIPRASIDONE MESYLATE INJ/PF 20 MG SDV IM PRN (12:30)
[2019-09-05] MEDS ORDERED: ONDANSETRON HCL INJ/PF 4 MG/2 ML SDV IV PRN (13:01)
[2019-09-05] MEDS ORDERED: ONDANSETRON 4 MG TAB.RAPDIS PO PRN (13:01)
--- NOTE | 2019-09-05 13:17 | PDOC H&P ---
History of Present Illness Admission Date/PCP: 09/05/19 08:43 History of Present Illness: SANDRA ZAPATA III is a 74 year old male was admitted through the emergency room for chest pain. Patient was actually here yesterday in the ER but signed himself out AMA. Patient states he has a history of chest pain as well as alcohol abuse dementia. Patient told the ER physician that if he reports that he has chest pain he will be admitted to the hospital. Patient tells me that he is homeless he is traveled all over the country. Patient denies having any chest pain when seen by me or the sound installation worker. Patient had elevated cardiac enzymes in the ER, there for he was put in under observation status for further evaluation Patient was on no medicines prior to coming to the hospital Past Medical History Cardiac Medical History: Reports: DVT, Hypertension Pulmonary Medical History: Reports: None EENT Medical History: Reports: None Neurological Medical History: Reports: None Endocrine Medical History: Reports: None Renal/ Medical History: Reports: None Malignancy Medical History: Reports: None GI Medical History: Reports: None Skin Medical History: Reports: None Psychiatric Medical History: Reports: Dementia Past Surgical History Past Surgical History: Reports: Orthopedic Surgery - Cervical spine Social History Lives with: Family Smoking Status: Unknown if Ever Smoked - Advance Directive Resuscitation Status: Full Code Family History Family History: Reviewed & Not Pertinent Parental Family History Reviewed: No Children Family History Reviewed: No Sibling(s) Family History Reviewed.: No Medication/Allergy Home Medications: No Home Medications 09/05/19 Allergies/Adverse Reactions: No Known Allergies Allergy (Verified 08/29/19 12:03) Review of Systems Constitutional: ABSENT: chills, fever(s), headache(s), weight gain, weight loss Cardiovascular: PRESENT: chest pain Respiratory: ABSENT: cough, hemoptysis Musculoskeletal: PRESENT: other - Complaining of neck pain and pain all over his body. ABSENT: joint swelling Neurological: ABSENT: abnormal gait, abnormal speech, confusion, dizziness, focal weakness, syncope Psychiatric: ABSENT: anxiety, depression, homidical ideation, suicidal ideation Physical Exam Vital Signs: Temp Pulse Resp BP Pulse Ox 97.6 F 73 16 124/51 L 100 09/04/19 23:41 09/04/19 23:41 09/04/19 23:41 09/04/19 23:41 01/20/20 23:41 Intake & Output 09/04/19 09/05/19 09/06/19 06:59 06:59 06:59 Weight 77.1 kg General appearance: PRESENT: no acute distress, well-developed, well-nourished Neck exam: PRESENT: other - Patient complains of neck pain but has full range of motion Respiratory exam: PRESENT: clear to auscultation sapphire. ABSENT: rales, rhonchi, wheezes Cardiovascular exam: PRESENT: RRR. ABSENT: diastolic murmur, rubs, systolic murmur Pulses: PRESENT: normal dorsalis pedis pul Neurological exam: PRESENT: alert, awake, oriented to person, oriented to place, oriented to time, oriented to situation, CN II-XII grossly intact. ABSENT: motor sensory deficit Psychiatric exam: PRESENT: unusual affect - Patient is somewhat defensive and hostile, although not aggressive Results Laboratory Results: 09/04/19 20:02 09/04/19 20:02 09/04/19 09/04/19 09/04/19 20:02 20:02 20:02 WBC 6.9 D RBC 4.12 L Hgb 12.7 L Hct 37.7 L MCV 92 MCH 30.7 MCHC 33.5 RDW 13.0 Plt Count 272 Seg Neutrophils % 75.9 Sodium 136.7 L Potassium 4.3 Chloride 96 L Carbon Dioxide 28 Anion Gap 13 BUN 11 Creatinine 1.16 Est GFR ( Amer) > 60 Glucose 98 Calcium 10.0 Total Bilirubin 0.3 AST 41 Alkaline Phosphatase 106 Total Protein 8.3 H Albumin 4.7 Urine Color STRAW Urine Appearance CLEAR Urine pH 5.0 Ur Specific [place] 1.003 Urine Protein NEGATIVE Urine Glucose (UA) NEGATIVE Urine Ketones NEGATIVE Urine Blood SMALL H Urine RBC (Auto) 0 09/04/19 09/04/19 09/04/19 20:02 23:38 23:38 Troponin I 0.028 0.024 NT-Pro-B Natriuret Pep 400 09/05/19 04:15 Troponin I 0.022 NT-Pro-B Natriuret Pep Impressions: Chest X-Ray 09/04/19 19:48 IMPRESSION: Mildly increased pulmonary edema. Assessment and Plan - Diagnosis (1) Elevated troponin Is this a current diagnosis for this admission?: Yes (2) Non-compliant behavior Is this a current diagnosis for this admission?: Yes (3) ETOH abuse Is this a current diagnosis for this admission?: Yes (4) Chest pain Qualifiers: Chest pain type: chest pain due to myocardial ischemia Ischemic chest pain type: stable angina pectoris Qualified Code(s): I20.8 - Other forms of angina pectoris Is this a current diagnosis for this admission?: Yes (5) Dementia Qualifiers: Dementia type: Alzheimer's disease Alzheimer's disease onset: unspecified onset Dementia behavioral disturbance: with behavioral disturbance Qualified Code(s): G30.9 - Alzheimer's disease, unspecified; F02.81 - Dementia in other diseases classified elsewhere with behavioral disturbance Is this a current diagnosis for this admission?: Yes - Plan Summary Summary: ED will be admitted under observation status for serial enzymes. Patient will have a cardiac work-up if he has any further chest pain. Medications will be adjusted. Patient is stable will be discharged home in the morning. No need for discharge planning to be involved at this point. Patient states he is perfectly capable of taking care of himself - Time Time Spent with patient: 35 or more minutes
--- NOTE | 2019-09-05 15:44 | PDOC CONSULTATION ---
Consultation Consult Date: 09/05/19 Attending physician:: ROSELIA DUKE Provider Consulted: NATALIA PRICE Consult reason:: Chest pain and troponin elevation History of Present Illness Admission Date/PCP: 09/05/19 08:43 Patient complains of: No complaints History of Present Illness: SANDRA ZAPATA III is a 74 year old male With dementia and possible alcohol abuse disorder who was admitted to the hospital with complaints of chest pain. Troponin was mildly elevated. At the time of my evaluation patient reports that he does not have any symptoms whatsoever. His troponin profile is flat and indeterminate. Presently no other symptoms are reported. Apparently patient does not have a very good social situation especially with living quarters. He is in a homeless half-way at present. He smokes cigarettes. Uses alcohol. No prior mention of coronary artery disease. Past Medical History Cardiac Medical History: Reports: DVT, Hypertension Pulmonary Medical History: Reports: None EENT Medical History: Reports: None Neurological Medical History: Reports: None Endocrine Medical History: Reports: None Renal/ Medical History: Reports: None Malignancy Medical History: Reports: None GI Medical History: Reports: None Skin Medical History: Reports: None Psychiatric Medical History: Reports: Dementia Past Surgical History Past Surgical History: Reports: Orthopedic Surgery - Cervical spine Social History Lives with: Family Smoking Status: Unknown if Ever Smoked - Advance Directive Resuscitation Status: Full Code Family History Family History: Reviewed & Not Pertinent Parental Family History Reviewed: No - No familial illnesses Children Family History Reviewed: NA Sibling(s) Family History Reviewed.: NA Medication/Allergy Home Medications: No Home Medications 09/05/19 Allergies/Adverse Reactions: No Known Allergies Allergy (Verified 08/29/19 12:03) Review of Systems Eyes: PRESENT: as per HPI Cardiovascular: ABSENT: chest pain, dyspnea on exertion, edema, orthropnea, palpitations Physical Exam Vital Signs: Temp Pulse Resp BP Pulse Ox 97.6 F 73 16 124/51 L 100 09/04/19 23:41 09/04/19 23:41 09/04/19 23:41 09/04/19 23:41 09/04/19 23:41 Intake & Output 09/04/19 09/05/19 09/06/19 06:59 06:59 06:59 Weight 77.1 kg General appearance: PRESENT: well-developed Head exam: PRESENT: atraumatic, normocephalic Eye exam: PRESENT: EOMI Respiratory exam: PRESENT: symmetrical, unlabored Cardiovascular exam: PRESENT: RRR, +S1, +S2 Pulses: PRESENT: normal radial pulses GI/Abdominal exam: PRESENT: soft Rectal exam: PRESENT: deferred Musculoskeletal exam: PRESENT: normal inspection Neurological exam: PRESENT: alert, awake, oriented to person, oriented to place, oriented to time, oriented to situation Psychiatric exam: PRESENT: appropriate affect Skin exam: PRESENT: dry, intact, normal color Results Laboratory Results: 09/04/19 20:02 09/04/19 20:02 09/04/19 09/04/19 09/04/19 20:02 20:02 20:02 WBC 6.9 D RBC 4.12 L Hgb 12.7 L Hct 37.7 L MCV 92 MCH 30.7 MCHC 33.5 RDW 13.0 Plt Count 272 Seg Neutrophils % 75.9 Sodium 136.7 L Potassium 4.3 Chloride 96 L Carbon Dioxide 28 Anion Gap 13 BUN 11 Creatinine 1.16 Est GFR ( Amer) > 60 Glucose 98 Calcium 10.0 Total Bilirubin 0.3 AST 41 Alkaline Phosphatase 106 Total Protein 8.3 H Albumin 4.7 TSH Urine Color STRAW Urine Appearance CLEAR Urine pH 5.0 Ur Specific [place] 1.003 Urine Protein NEGATIVE Urine Glucose (UA) NEGATIVE Urine Ketones NEGATIVE Urine Blood SMALL H Urine RBC (Auto) 0 09/05/19 04:15 WBC RBC Hgb Hct MCV MCH MCHC RDW Plt Count Seg Neutrophils % Sodium Potassium Chloride Carbon Dioxide Anion Gap BUN Creatinine Est GFR ( Amer) Glucose Calcium Total Bilirubin AST Alkaline Phosphatase Total Protein Albumin TSH 1.89 Urine Color Urine Appearance Urine pH Ur Specific [place] Urine Protein Urine Glucose (UA) Urine Ketones Urine Blood Urine RBC (Auto) 09/04/19 09/04/19 09/04/19 20:02 23:38 23:38 Troponin I 0.028 0.024 NT-Pro-B Natriuret Pep 400 09/05/19 04:15 Troponin I 0.022 NT-Pro-B Natriuret Pep EKG Comments: Movement reviewed Reviewed by me. Sinus rhythm, QTC within normal limits. CT changes to suggest ischemia Impressions: Chest X-Ray 09/04/19 19:48 IMPRESSION: Mildly increased pulmonary edema. Assessment & Plan - Diagnosis (1) Chest pain Qualifiers: Chest pain type: chest pain due to myocardial ischemia Ischemic chest pain type: stable angina pectoris Qualified Code(s): I20.8 - Other forms of angina pectoris Is this a current diagnosis for this admission?: Yes Plan: Presently patient denies any chest pain or any cardiac symptoms whatsoever Would not recommend re-stratification especially without ongoing symptoms. EKG is indeterminate for coronary artery disease. Troponin profile is flat and indeterminate as well. (2) Elevated troponin Is this a current diagnosis for this admission?: Yes Plan: Unlikely to be acute coronary syndrome especially with absent symptoms and flat and indeterminate troponin profile. Would suggest outpatient follow-up
[2019-09-05] MEDS: ACETAMINOPHEN 325 MG TABLET PO PRN ×2 (16:01→23:46)
[2019-09-05] MEDS: ENOXAPARIN SODIUM INJ 40 MG/0.4 ML DISP.SYRIN SUBCUT SCH (16:09)
[2019-09-05] MEDS ORDERED: ATORVASTATIN CALCIUM 20 MG TABLET PO SCH (22:00)
[2019-09-05] MEDS: FAMOTIDINE 20 MG TABLET PO SCH (22:17)
--- NOTE | 2019-09-06 07:40 | EKG REPORT ---
SEVERITY:- DEFECTIVE ECG - SINUS BRADYCARDIA BORDERLINE LEFT AXIS DEVIATION NONSPECIFIC T ABNORMALITIES, LATERAL LEADS : Confirmed by: Shiva Mendoza MD 06-Sep-2019 07:39:52
[2019-09-06] MEDS: OXYBUTYNIN CHLORIDE 5 MG TABLET PO SCH (09:18)
[2019-09-06] MEDS: LOSARTAN POTASSIUM 25 MG TABLET PO SCH (09:18)
[2019-09-06] MEDS: DONEPEZIL HCL 5 MG TABLET PO SCH (09:19)
[2019-09-06] MEDS: MEMANTINE HCL 10 MG TABLET PO SCH (09:19)
[2019-09-06] MEDS: ACETAMINOPHEN 325 MG TABLET PO PRN (09:19)
[2019-09-06] MEDS: THIAMINE HCL 100 MG TABLET PO SCH (09:19)
[2019-09-06] MEDS: FAMOTIDINE 20 MG TABLET PO SCH (09:19)
[2019-09-06] MEDS: ENOXAPARIN SODIUM INJ 40 MG/0.4 ML DISP.SYRIN SUBCUT SCH (09:19)
[2019-09-06] MEDS ORDERED: DOCUSATE SODIUM 100 MG CAPSULE PO SCH (10:00)
[2019-09-06 10:15] VITALS: BP 119/55
--- NOTE | 2019-09-06 16:24 | PDOC DISCHARGE SUMMARY ---
Impression - Admit/DC Date/PCP Admission Date/Primary Care Provider: 09/05/19 08:43 Discharge Date: 09/06/19 - Discharge Diagnosis (1) Elevated troponin Is this a current diagnosis for this admission?: Yes (2) Non-compliant behavior Is this a current diagnosis for this admission?: Yes (3) ETOH abuse Is this a current diagnosis for this admission?: Yes (4) Chest pain Is this a current diagnosis for this admission?: Yes (5) Dementia Is this a current diagnosis for this admission?: Yes - Assessment Summary: ED will be admitted under observation status for serial enzymes. Patient will have a cardiac work-up if he has any further chest pain. Medications will be adjusted. Patient is stable will be discharged home in the morning. No need for discharge planning to be involved at this point. Patient states he is perfectly capable of taking care of himself 09/06/2019 Patient was admitted for chest pain and serial enzymes. Was a soft admission as patient had checked himself out AMA the day before from the emergency room for the same complaint. She has a history of alcohol abuse as well as dementia Patient's cardiac enzymes were trending down. He was seen by cardiology who did not feel that this was cardiac in nature. He was discharged home today with medications including Aricept Cozaar Ditropan Lipitor Namenda and thiamine Final diagnosis, chest pain, alcohol abuse, patient noncompliance ,and elevated troponin. - Additional Information Resuscitation Status: Full Code Discharge Diet: As Tolerated Discharge Activity: Activity As Tolerated Referrals: pt,left ama [Other] Prescriptions: Donepezil HCl [Aricept 5 mg Tablet] 5 mg PO DAILY 30 Days #30 tablet Losartan Potassium [Cozaar 25 mg Tablet] 25 mg PO DAILY 30 Days #30 tablet Oxybutynin Chloride [Ditropan 5 mg Tablet] 5 mg PO DAILY 30 Days #30 tablet Atorvastatin Calcium [Lipitor 20 mg Tablet] 20 mg PO QHS 30 Days #30 tablet Memantine HCl [Namenda 10 mg Tablet] 5 mg PO BID 30 Days #15 tablet Thiamine HCl [Thiamine 100 mg Tablet] 100 mg PO DAILY 30 Days #30 tablet Home Medications: Atorvastatin Calcium [Lipitor 20 mg Tablet] 20 mg PO QHS 30 Days #30 tablet 09/06/19 Donepezil HCl [Aricept 5 mg Tablet] 5 mg PO DAILY 30 Days #30 tablet 09/06/19 Losartan Potassium [Cozaar 25 mg Tablet] 25 mg PO DAILY 30 Days #30 tablet 09/06/19 Memantine HCl [Namenda 10 mg Tablet] 5 mg PO BID 30 Days #15 tablet 09/06/19 Oxybutynin Chloride [Ditropan 5 mg Tablet] 5 mg PO DAILY 30 Days #30 tablet 09/06/19 Thiamine HCl [Thiamine 100 mg Tablet] 100 mg PO DAILY 30 Days #30 tablet 09/06/19 History of Present Illiness History of Present Illness: SANDRA ZAPATA III is a 74 year old male was admitted through the emergency room for chest pain. Patient was actually here yesterday in the ER but signed himself out AMA. Patient states he has a history of chest pain as well as alcohol abuse dementia. Patient told the ER physician that if he reports that he has chest pain he will be admitted to the hospital. Patient tells me that he is homeless he is traveled all over the country. Patient denies having any chest pain when seen by me or the flight test data acquisition technician. Patient had elevated cardiac enzymes in the ER, there for he was put in under observation status for further evaluation Patient was on no medicines prior to coming to the hospital Physical Exam Vital Signs: Temp Pulse Resp BP Pulse Ox 97.4 F 70 19 119/55 L 100 09/06/19 10:00 09/06/19 10:00 09/06/19 10:00 09/06/19 10:00 09/06/19 10:00 Intake & Output 09/05/19 09/06/19 09/07/19 06:59 06:59 06:59 Intake Total 1280 Output Total 1000 Balance 280 Weight 77.1 kg 64.8 kg Results Laboratory Results: WBC 6.9 10^3/uL (4.0-10.5) D 09/04/19 20:02 RBC 4.12 10^6/uL (4.35-5.55) L 09/04/19 20:02 Hgb 12.7 g/dL (13.5-17.0) L 09/04/19 20:02 Hct 37.7 % (37.9-51.0) L 09/04/19 20:02 MCV 92 fl (80-97) 09/04/19 20:02 MCH 30.7 pg (27.0-33.4) 09/04/19 20:02 MCHC 33.5 g/dL (32.0-36.0) 09/04/19 20:02 RDW 13.0 % (11.5-14.0) 09/04/19 20:02 Plt Count 272 10^3/uL (150-450) 09/04/19 20: Lymph % (Auto) 17.6 % (13-45) 09/04/19 20:02 Lee % (Auto) 5.9 % (3-13) 09/04/19 20:02 Eos % (Auto) 0.3 % (0-6) 09/04/19 20: Baso % (Auto) 0.3 % (0-2) 09/04/19 20: Absolute Neuts (auto) 5.2 10^3/uL (1.7-8.2) 09/04/19 20: Absolute Lymphs (auto) 1.2 10^3/uL (0.5-4.7) 09/04/19 20: Absolute Monos (auto) 0.4 10^3/uL (0.1-1.4) 09/04/19 20: Absolute Eos (auto) 0.0 10^3/uL (0.0-0.6) 09/04/19 20: Absolute Basos (auto) 0.0 10^3/uL (0.0-0.2) 09/04/19 20: Seg Neutrophils % 75.9 % (42-78) 09/04/19 20: Sodium 136.7 mmol/L (137-145) L 09/04/19 20:02 Potassium 4.3 mmol/L (3.6-5.0) 09/04/19 20: Chloride 96 mmol/L (98-107) L 09/04/19 20:02 Carbon Dioxide 28 mmol/L (22-30) 09/04/19 20: Anion Gap 13 (5-19) 09/04/19 20:02 BUN 11 mg/dL (7-20) 09/04/19 20:02 Creatinine 1.16 mg/dL (0.52-1.25) 09/04/19 20: Est GFR ( Amer) > 60 (>60) 01/20/20 20:02 Est GFR (MDRD) Non-Af > 60 (>60) 09/04/19 20:02 Glucose 98 mg/dL (75-110) 09/04/19 20:02 Calcium 10.0 mg/dL (8.4-10.2) 09/04/19 20:02 Magnesium 1.5 mg/dL (1.6-2.3) L 09/06/19 07:07 Total Bilirubin 0.3 mg/dL (0.2-1.3) 09/04/19 20:02 Direct Bilirubin 0.0 mg/dL (0.0-0.4) 09/04/19 20:02 Neonat Total Bilirubin Not Reportable 09/04/19 20:02 Neonat Direct Bilirubin Not Reportable 09/04/19 20:02 Neonat Indirect Bili Not Reportable 09/04/19 20:02 AST 41 U/L (17-59) 09/04/19 20:02 ALT 15 U/L (<50) 09/04/19 20:02 Alkaline Phosphatase 106 U/L (38-126) 09/04/19 20:02 Troponin I 0.022 ng/mL 09/05/19 04:15 NT-Pro-B Natriuret Pep 400 pg/mL (<450) 09/04/19 23:38 Total Protein 8.3 g/dL (6.3-8.2) H 09/04/19 20:02 Albumin 4.7 g/dL (3.5-5.0) 09/04/19 20:02 TSH 1.89 uIU/mL (0.47-4.68) 09/05/19 04:15 Urine Color STRAW 09/04/19 20:02 Urine Appearance CLEAR 09/04/19 20:02 Urine pH 5.0 (5.0-9.0) 09/04/19 20:02 Ur Specific [place] 1.003 09/04/19 20:02 Urine Protein NEGATIVE mg/dL (NEGATIVE) 09/04/19 20:02 Urine Glucose (UA) NEGATIVE mg/dL (NEGATIVE) 09/04/19 20:02 Urine Ketones NEGATIVE mg/dL (NEGATIVE) 09/04/19 20:02 Urine Blood SMALL (NEGATIVE) H 09/04/19 20:02 Urine Nitrite (Reflex) NEGATIVE (NEGATIVE) 09/04/19 20:02 Urine Bilirubin NEGATIVE (NEGATIVE) 09/04/19 20:02 Urine Urobilinogen NEGATIVE mg/dL (<2.0) 09/04/19 20:02 Leukocyte Esterase Rfl TRACE (NEGATIVE) H 09/04/19 20:02 Urine RBC (Auto) 0 /HPF 09/04/19 20:02 Urine WBC (Reflex) 9 /HPF 09/04/19 20:02 Squamous Epi Cells Auto <1 /HPF 09/04/19 20:02 Urine Mucus (Auto) RARE /LPF 09/04/19 20:02 Urine Ascorbic Acid NEGATIVE (NEGATIVE) 09/04/19 20:02 Urine Opiates Screen NEGATIVE 09/04/19 20:02 Urine Methadone Screen NEGATIVE 09/04/19 20:02 Ur Barbiturates Screen NEGATIVE 09/04/19 20:02 Ur Phencyclidine Scrn NEGATIVE 09/04/19 20:02 Ur Amphetamines Screen NEGATIVE 09/04/19 20:02 U Benzodiazepines Scrn NEGATIVE 09/04/19 20:02 Urine Cocaine Screen NEGATIVE 09/04/19 20:02 U Marijuana (THC) Screen NEGATIVE 09/04/19 20:02 Serum Alcohol 31 mg/dL (NONE DETECTED) 09/04/19 20:02 09/04/19 09/04/19 09/04/19 20:02 23:38 23:38 Troponin I 0.028 0.024 NT-Pro-B Natriuret Pep 400 09/05/19 04:15 Troponin I 0.022 NT-Pro-B Natriuret Pep Impressions: Chest X-Ray 09/04/19 19:48 IMPRESSION: Mildly increased pulmonary edema. Stroke Is this a Stroke Patient?: No Acute Heart Failure - Is this a Heart Failure Patient?: No
== END 2019-09-06 09:59 | disposition left against medical advice (07) ==
LOC: ER 19:19 → EH 09-05 08:43 → INTOOBSV 09-05 08:43 → 5 09-05 09:53
PROVIDERS: ADMIT Hospitalist; ATTEND Hospitalist
DX: I20.8 Other forms of angina pectoris (principal); R79.89 Other specified abnormal findings of blood chemistry; Z91.19 Patient's noncompliance with other medical treatment and regimen; F10.10 Alcohol abuse, uncomplicated; Z59.0 Homelessness; G30.9 Alzheimer's disease, unspecified; F02.81 Dementia in other diseases classified elsewhere, unspecified severity, with behavioral disturbance; F17.210 Nicotine dependence, cigarettes, uncomplicated; G89.29 Other chronic pain; M54.2 Cervicalgia; M54.9 Dorsalgia, unspecified; I10 Essential (primary) hypertension; J81.1 Chronic pulmonary edema; Z86.718 Personal history of other venous thrombosis and embolism; Z98.890 Other specified postprocedural states; Z87.81 Personal history of (healed) traumatic fracture
CPT/HCPCS: 93005 ×3; 99284; 96372; 36415 ×3; 87086; 80307 ×2; 83735; 84443; 85025; 80053; 81001; 84484 ×2; 83880; 71046; 93010 ×3; G0378 ×2; A9270 ×16; J3486

== ENCOUNTER 2019-12-23 16:21 | Emergency (ER) | payer MEDICARE ==
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
[2019-12-23 17:47] LABS: ABSOLUTE LYMPHOCYTES (AUTO) 1.4 10^3/uL (0.5-4.7); ABSOLUTE MONOCYTES (AUTO) 0.2 10^3/uL (0.1-1.4); ABSOLUTE NEUT (AUTO) 2.4 10^3/uL (1.7-8.2); BASOPHILS % (AUTO) 0.2 % (0-2); EOSINOPHILS % (AUTO) 0.3 % (0-6); HEMATOCRIT 33.7 % (37.9-51.0); HEMOGLOBIN 11.3 g/dL (13.5-17.0); LYMPHOCYTES % (AUTO) 35.9 % (13-45); MEAN CORPUSCULAR HEMOGLOBIN 29.5 pg (27.0-33.4); MEAN CORPUSCULAR HGB CONC 33.5 g/dL (32.0-36.0); MEAN CORPUSCULAR VOLUME 88 fl (80-97); PLATELET COUNT 244 10^3/uL (150-450); RED BLOOD COUNT 3.82 10^6/uL (4.35-5.55); RED CELL DISTRIBUTION WIDTH 13.7 % (11.5-14.0); SEGMENTED NEUTROPHILS % (AUTO) 58.6 % (42-78); TOTAL CELLS COUNTED % (AUTO) 100 %
[2019-12-23 17:48] LABS: APPEARANCE,URINE CLEAR; BILIRUBIN,URINE NEGATIVE (NEGATIVE); COLOR,URINE COLORLESS; GLUCOSE, URINE NEGATIVE (NEGATIVE); KETONES,URINE NEGATIVE (NEGATIVE); LEUKOCYTE ESTERASE,URINE NEGATIVE (NEGATIVE); NITRITE,URINE NEGATIVE (NEGATIVE); PROTEIN,URINE NEGATIVE (NEGATIVE); URINE SPECIFIC GRAVITY 1.002; UROBILINOGEN,URINE NEGATIVE mg/dL (<2.0)
[2019-12-23 18:10] LABS: ALBUMIN 4.2 g/dL (3.5-5.0); ALCOHOL 135 mg/dL (NONE DETECTED); ALKALINE PHOSPHATASE 90 U/L (38-126); ANION GAP 10 (5-19); ASPARTATE AMINO TRANSFERASE 38 U/L (17-59); BILIRUBIN,TOTAL 0.5 mg/dL (0.2-1.3); BLOOD UREA NITROGEN 11 mg/dL (7-20); CALCIUM 9.2 mg/dL (8.4-10.2); CARBON DIOXIDE 27 mmol/L (22-30); CHLORIDE 98 mmol/L (98-107); GLUCOSE 91 mg/dL (75-110); POTASSIUM 4.4 mmol/L (3.6-5.0); TOTAL PROTEIN 7.4 g/dL (6.3-8.2)
[2019-12-23] MEDS ORDERED: ACETAMINOPHEN 325 MG TABLET PO ONE (19:54)
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
[2019-12-24] MEDS ORDERED: ACETAMINOPHEN 325 MG TABLET PO ONE (14:29)
[2019-12-24] MEDS ORDERED: LORAZEPAM 0.5 MG TABLET PO ONE (14:29)
[2019-12-24] MEDS ORDERED: ACETAMINOPHEN 325 MG TABLET PO PRN (23:37)
[2019-12-24] MEDS ORDERED: LORAZEPAM 0.5 MG TABLET PO PRN (23:39)
[2019-12-25 02:36] VITALS: BP 126/72
--- NOTE | 2019-12-25 08:41 | ER Document Report ---
Doctor's Note Notes: 12/25/19 08:38 I was requested to speak with the patient by nursing staff. Patient is adamant that he is going to leave. He states that we are holding him against his will. I advised the patient that his sister was already called this morning by providers and has indicated that he is not welcome back there and that she will not come and pick him up. Patient states that he will go to the [facility]. Patient chart was reviewed. Patient is not under IVC. He has been evaluated by social work. He does not wish to speak with social work again. Patient reiterates aggressively that he wishes to leave. He is refusing to sign AGAINST MEDICAL ADVICE. I did inform the patient of the risks of him leaving and did i ndicate to the patient that we would be happy to try and obtain him placement and a ride to that placement and he again refuses. Patient reiterates that he wants to leave and is threatening staff aggressively if he is kept. At this time patient will be discharged as he is not under IVC he is indicating that he will go to the [facility]. He is refusing all assistance otherwise. He is answering other questions appropriately at this time, knows what day it is, knows the time, knows the year.
== END 2019-12-25 08:40 | disposition home or self-care (01) ==
LOC: ER 16:21
DX: S09.90XA Unspecified injury of head, initial encounter (principal); R51 Headache; Y04.2XXA Assault by strike against or bumped into by another person, initial encounter; M54.2 Cervicalgia; G89.29 Other chronic pain; G30.9 Alzheimer's disease, unspecified; F02.80 Dementia in other diseases classified elsewhere, unspecified severity, without behavioral disturbance, psychotic disturbance, mood disturbance, and anxiety; F17.200 Nicotine dependence, unspecified, uncomplicated; I10 Essential (primary) hypertension; Z63.8 Other specified problems related to primary support group; Z87.81 Personal history of (healed) traumatic fracture
CPT/HCPCS: 99284; 36415; 80307; 85025; 80053; 81001; 70450; 72125; A9270 ×4

== ENCOUNTER 2020-01-13 13:30 | Emergency (ER) | payer MEDICARE ==
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
--- NOTE | 2020-01-13 16:55 | EKG REPORT ---
SEVERITY:- OTHERWISE NORMAL ECG - SINUS BRADYCARDIA MINIMAL ST ELEVATION, ANTERIOR LEADS : Confirmed by: Shiva Mendoza MD 13-Jan-2020 16:53:32
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
[2020-01-13 17:29] LABS: ABSOLUTE LYMPHOCYTES (AUTO) 1.5 10^3/uL (0.5-4.7); ABSOLUTE MONOCYTES (AUTO) 0.3 10^3/uL (0.1-1.4); ABSOLUTE NEUT (AUTO) 2.4 10^3/uL (1.7-8.2); BASOPHILS % (AUTO) 0.7 % (0-2); EOSINOPHILS % (AUTO) 0.6 % (0-6); HEMATOCRIT 32.9 % (37.9-51.0); HEMOGLOBIN 11.1 g/dL (13.5-17.0); LYMPHOCYTES % (AUTO) 36.3 % (13-45); MEAN CORPUSCULAR HEMOGLOBIN 29.4 pg (27.0-33.4); MEAN CORPUSCULAR HGB CONC 33.6 g/dL (32.0-36.0); MEAN CORPUSCULAR VOLUME 88 fl (80-97); MONOCYTES % (AUTO) 6.6 % (3-13); PLATELET COUNT 278 10^3/uL (150-450); RED BLOOD COUNT 3.76 10^6/uL (4.35-5.55); RED CELL DISTRIBUTION WIDTH 14.1 % (11.5-14.0); SEGMENTED NEUTROPHILS % (AUTO) 55.8 % (42-78); TOTAL CELLS COUNTED % (AUTO) 100 %; WHITE BLOOD COUNT 4.2 10^3/uL (4.0-10.5)
[2020-01-13 17:40] LABS: ALCOHOL < 10 mg/dL (NONE DETECTED); ALKALINE PHOSPHATASE 87 U/L (38-126); ANION GAP 7 (5-19); ASPARTATE AMINO TRANSFERASE 28 U/L (17-59); BILIRUBIN,TOTAL 0.4 mg/dL (0.2-1.3); BLOOD UREA NITROGEN 14 mg/dL (7-20); CALCIUM 9.5 mg/dL (8.4-10.2); CARBON DIOXIDE 29 mmol/L (22-30); CHLORIDE 100 mmol/L (98-107); GLUCOSE 95 mg/dL (75-110); TOTAL PROTEIN 7.2 g/dL (6.3-8.2)
[2020-01-13 19:15] LABS: ACETAMINOPHEN < 10 ug/mL (10-30); SALICYLATE < 1.0 mg/dL (2.0-20.0)
--- NOTE | 2020-01-13 19:47 | ER Document Report ---
Doctor's Note Notes: 01/13/20 19:46 Spoke with Patient's sister Liaen who advised the Patient has a bed at a facility in [place] but it is not yet available. She indicated she feels as though at times the Patient is regressing in nature and at times having outbursts that are concerning. Spent time explaining the course of dementia to the sister and interventions and tools she could utilize to help her brother and family. Confirmed home medications listed on [facility]. Discussed the plan of care with sister which includes: starting the new medication regiment, observe overnight while on IVC Petition, and if behaviors and mood found to be better tomorrow during medical and behavior health assessments, he will discharge home with sister. Sister was on board with plan of care and and thanked this clinician adn Dr. Cee for the ongoing updates and time spent with her and family on the phone today. Medication recommendations from psychiatric provider include: 1. Discontinue Aricept 2. Discontinue Memantatine 3. Add Risperdone 0.25 mg twice per day 4. Add Depakote 250 mg twice per day 5. Add Buspar 5 mg twice per day Spoke with Dr. Cee prior to contacting Liane and he was in agreement with treatment plan and recommendations.
[2020-01-13] MEDS: DIVALPROEX SODIUM 250 MG TABLET.DR PO SCH (20:18)
[2020-01-13] MEDS: RISPERIDONE 0.25 MG TABLET PO SCH (20:19)
[2020-01-13] MEDS: BUSPIRONE HCL 10 MG TABLET PO SCH (20:19)
[2020-01-13] MEDS ORDERED: ATORVASTATIN CALCIUM 20 MG TABLET PO SCH (22:00)
[2020-01-14] MEDS: THIAMINE HCL 100 MG TABLET PO SCH ×2 (00:07→11:20)
[2020-01-14] MEDS: LOSARTAN POTASSIUM 25 MG TABLET PO SCH ×2 (00:07→11:20)
--- NOTE | 2020-01-14 10:19 | ER Document Report ---
Doctor's Note Notes: 01/14/20 10:18 Patient was started on medications last evening. Labs as recorded. Imaging unremarkable. Vital signs are stable. Awaiting discussions with the psychology team with family and outside resources for further assessment and placement.
[2020-01-14] MEDS: DIVALPROEX SODIUM 250 MG TABLET.DR PO SCH (11:20)
[2020-01-14] MEDS: BUSPIRONE HCL 10 MG TABLET PO SCH (11:20)
[2020-01-14] MEDS: RISPERIDONE 0.25 MG TABLET PO SCH (11:20)
[2020-01-14 15:49] VITALS: BP 164/57
== END 2020-01-14 15:40 | disposition home or self-care (01) ==
LOC: ER 13:30 → EEVIPCON 13:30 → ER 01-14 15:40
DX: Z04.89 Encounter for examination and observation for other specified reasons (principal); F03.91 Unspecified dementia, unspecified severity, with behavioral disturbance; R45.850 Homicidal ideations; R00.1 Bradycardia, unspecified; M50.30 Other cervical disc degeneration, unspecified cervical region; M47.812 Spondylosis without myelopathy or radiculopathy, cervical region; I10 Essential (primary) hypertension; F17.210 Nicotine dependence, cigarettes, uncomplicated; Z79.899 Other long term (current) drug therapy; Z87.81 Personal history of (healed) traumatic fracture; Z98.1 Arthrodesis status; Z20.828 Contact with and (suspected) exposure to other viral communicable diseases
CPT/HCPCS: 93005; 99285; 36415; 80307 ×3; 85025; 80053; 71045; 70450; 72125; 93010; U0003; A9270 ×8; 87635; C9803; J3490